=== PATIENT | female | born 1965 | race Two or more races ===

== ENCOUNTER 2017-08-17 11:41 | Inpatient (IN) | payer MEDICAID ==
--- NOTE | 2017-08-17 11:50 | ED Physician Chart ---
ED Chief Complaint/HPI - Patient Information Date Seen:: 08/17/17 Time Seen:: 11:40 Chief Complaint:: Weakness History of Present Illness:: onset x one day of weakness and gait changes; pt denies trauma, LOC, H/As, neck pain, C/P, cough, Abd. Pain, A/N/V/D/C, fever, chills, or urinary s/s Allergies:: Allergies Allergy/AdvReac Type Severity Reaction Status Date / Time No Known Allergies Allergy Verified 01/10/16 07:58 Historian:: Patient Review:: Nurse's Note Reviewed ED Review of Systems - Review of Systems General/Constitutional: No fever, No chills, No weight loss, No weakness, No diaphoresis, No edema, No loss of appetite Skin: No skin lesions, No rash, No bruising Head: No headache, No light-headedness Eyes: No loss of vision, No pain, No diplopia ENT: No earache, No nasal drainage, No sore throat, No tinnitus Neck: No neck pain, No swelling, No thyromegaly, No stiffness, No mass noted Cardio Vascular: No chest pain, No palpitations, No PND, No orthopnea, No edema Pulmonary: No SOB, No cough, No sputum, No wheezing GI: No nausea, No vomiting, No diarrhea, No pain, No melena, No hematochezia, No constipation, No hematemesis G/U: No dysuria, No frequency, No hematuria, No nacturia [employer]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, No abnormal vaginal bleed, No contraction Musculoskeletal: No bone or joint pain, No back pain, No muscle pain Endocrine: No polyuria, No polydipsia Psychiatric: No prior psych history, No depression, No anxiety, No suicidal ideation, No homicidal ideation, No auditory hallucination, No visual hallucination Hematopoietic: No bruising, No lymphadenopathy Allergic/Immuno: No urticaria, No angioedema Neurological: No syncope, No focal symptoms, Weakness, No paresthesia, No headache, No seizure, No dizziness, No confusion, No vertigo ED Past Medical History - Past Medical History Obtainable: Yes Past Medical History: Arthritis Family History: HTN Social History: Non Smoker, No Alcohol, No Drug Use, Single Surgical History: None Psychiatricy History: None Medication: Reviewed Family Medical History - Family Member Brother Ethnicity: Living Status: Hx Family Cancer: Yes ( from Stomach Cancer) Mother History Unknown: Yes Ethnicity: Living Status: Still Living Hx Family Diabetes: Yes ED Physical Exam - Physical Examination General/Constitutional: Awake, Well-developed, well-nourished, Alert, No distress, GCS 15, Non-toxic appearing, Ambulatory Head: Atraumatic Eyes: Lids, conjuctiva normal, PERRL, EOMI Skin: Nl inspection, No rash, No skin lesions, No ecchymosis, Well hydrated, No lymphadenopathy ENMT: External ears, nose nl, TM canals nl, Nasal exam nl, Lips, teeth, gums nl , Oropharynx nl, Tonsils nl Neck: Nontender, Full ROM w/o pain, No JVD, No nuchal rigidity, No bruit, No mass, No stridor Respiratory: Nl effort/Exclusion, Clear to Auscultation, No Wheeze/Rhonchi/Rales Cardio Vascular: RRR, No murmur, gallop, rubs, NL S1 S2, Carotid/Femoral/Distal pulses equal bilaterally GI: No tenderness/rebounding/guarding, No organomegaly, No hernia, Normal BS's, Nondistended, No mass/bruits, No McBurney tenderness : No CVA tenderness Extremities: No tenderness or effusion, Full ROM, normal strength in all extremities, No edema, Normal digits & nails Neuro/Psych: Alert/oriented, DTR's symmetric, Normal sensory exam, Normal motor strength, Judgement/insight normal, Mood normal, Normal gait, No focal deficits Misc: Normal back, No paraspinal tenderness ED Labs/Radiology/EKG Results - Lab Results Comments:: K+: 2.9; LA: 2.44; WBC:4.0 - Radiology Results Comments:: NAD - EKG Interpretations EKG Time:: 12:16 Rate & Rhythm: 101; [facility] [place]: LAD Comments:: non-specific st-t changes ED Septic Shock - . Is Septic Shock (SBP<90, OR Lactate>4 mmol\L) present?: No ED Reassessment (Disposition) - Reassessment Reassessment Condition:: Improved - Diagnosis Diagnosis:: TIA; Hypokalemia; Dehydration; Leukopenia; sepsis - Aftercare/Follow up Instructions Aftercare/Follow-Up Instructions:: Counseled pt regarding lab results/diagnosis & need follow up, Counseled pt & family regarding lab results/diagnosis & need follow up - Patient Disposition Discharge/Transfer:: Acute Care w/in this hosp Accepting Physician:: Dr. Young Time Called:: 1400 Time Responded:: 14:00 Admitted to:: Telemetry Spoke to:: Dr. Young Admitting Medical Physician:: Dr. Young Condition at Disposition:: Stable, Improved
[2017-08-17 12:14] LABS: EOSINOPHILE ABSOLUTE 0.3 Th/cmm (0.1-0.4); LYMPHOCYTE ABSOLUTE 1.7 Th/cmm (1.5-3.0); MONOCYTE ABSOLUTE 0.4 Th/cmm (0.3-1.0)
[2017-08-17 12:22] LABS: % BASOPHILS 0.1 % (0.0-2.0); % EOSINOPHILS 6.9 % (0.0-5.0); % LYMPHOCYTES 42.6 % (20.0-50.0); % MONOCYTES 10.8 % (2.0-10.0); % NEUTROPHILS 39.6 % (40.0-80.0); HEMATOCRIT 40.5 % (41.0-60); HEMOGLOBIN 14.1 gm/dL (12-16); MEAN CELL VOLUME 99.6 fl (81-100); MEAN CORPUSCULAR HEMOGLOBIN 34.8 pg (27.0-31.0); MEAN CORPUSCULAR HGB CONC 34.9 pg (28.0-36.0); MEAN PLATELET VOLUME 8.9 fl; NEUTROPHILE ABSOLUTE 1.6 Th/cmm (1.8-8.0); PLATELET COUNT 258 Th/cmm (150-400); RED BLOOD COUNT 4.07 Mil/cmm (3.80-5.10); RED CELL DISTRIBUTION WIDTH 13.2 % (11.5-20.0)
[2017-08-17 12:27] LABS: INR 1.08 (0.5-1.4); PROTHROMBIN TIME (TEST) 11.2 SECONDS (9.5-11.5)
[2017-08-17 12:39] LABS: ALBUMIN 3.5 gm/dL (3.7-5.3); ALKALINE PHOSPHATASE 78 U/L (34-104); BILIRUBIN,TOTAL 1.8 mg/dL (0.3-1.0); BUN - UREA NITROGEN 10 mg/dL (7-25); CALCIUM SERUM 9.1 mg/dL (8.6-10.3); CARBON DIOXIDE 24.9 mEq/L (21.0-31.0); CHLORIDE 99 mEq/L (98-107); CHOLESTEROL 175 mg/dL (<200); CREATININE - SERUM 0.7 mg/dL (0.6-1.2); CREATININE KINASE 30 U/L (30-223); GFR AFRICAN-AMERICAN > 60.0 ml/min (>90); GFR NON AFRICAN-AMERICAN > 60.0 ml/min; GLUCOSE 90 mg/dL (70-105); HDL -HIGH DENSITY LIPOPROTEIN 73 mg/dL (23-92); SGOT 328 U/L (13-39); SGPT/ALT 128 U/L (7-52); SODIUM SERUM 136 mEq/L (136-145); TRIGLYCERIDES 121 mg/dL (<150)
[2017-08-17 12:40] LABS: POTASSIUM SERUM 2.9 mEq/L (3.5-5.1)
[2017-08-17] MEDS ORDERED: Potassium Chloride 20 mEq ER Tab PO ONE ×2 (12:40→12:51)
--- NOTE | 2017-08-17 14:23 | Diagnostic Imaging Report ---
Head CT without intravenous contrast Indication: Weakness Comparison: Head CT on 02/24/2014 Technique: Axial images were obtained from the vertex to the skull base without IV contrast. Coronal reconstructions were made. Total DLP: 489, [id number] FINDINGS: Images of the brain obtained without contrast demonstrate no acute hemorrhage. No mass lesions identified. The ventricles and basal cisterns are patent. The russell-white matter differentiation is preserved. There is no mass effect or midline shift. No skull fractures identified. No soft tissue swelling. The paranasal sinuses are clear. IMPRESSION: No acute intracranial abnormality.
--- NOTE | 2017-08-17 14:29 | Diagnostic Imaging Report ---
Bilateral lower extremity Doppler venous ultrasound exam HISTORY: Pain/swelling Sonographic sector images were obtained through the deep venous systems of both legs. Associated Doppler data was obtained. The exam demonstrates patency of the common femoral, superficial femoral, popliteal, and posterior tibial veins bilaterally. Specifically, no thrombus is seen. There are normal compressibility and augmentation responses. IMPRESSION: Negative exam for deep vein thrombophlebitis.
[2017-08-17] MEDS ORDERED: cefTRIAXone 1 GM in Sodium Chloride 0.9% 50 ML IV ONE (15:52)
[2017-08-17 15:59] LABS: URINE MICROSCOPIC INDICATED? YES; URINE SOURCE MIDSTREAM
[2017-08-17 16:02] LABS: URINE BILIRUBIN MODERATE (NEGATIVE); URINE BLOOD MODERATE (NEGATIVE); URINE GLUCOSE (UA) NEGATIVE (NEGATIVE); URINE KETONE 15 mg/dL (NEGATIVE); URINE LEUKOCYTE ESTERASE TRACE (NEGATIVE); URINE NITRATE NEGATIVE (NEGATIVE); URINE PH 5.5 (4.6 - 8.0); URINE PROTEIN TRACE mg/dL (NEGATIVE)
[2017-08-17 16:09] LABS: URINE COLOR YELLOW
[2017-08-17 16:10] LABS: URINE CLARITY HAZY (CLEAR)
[2017-08-17 16:12] LABS: URINE EPITHELIAL CELLS MODERATE /lpf (FEW)
[2017-08-17 16:13] LABS: URINE BACTERIA FEW /hpf (NONE SEEN)
[2017-08-17] MEDS: D5-0.45NS w/20 mEq KCL 1,000 ML IV SCH (17:21)
--- NOTE | 2017-08-17 22:15 | History & Physical ---
ADMIT DATE: 08/17/2017 CHIEF COMPLAINT: Lower extremities pain. HISTORY OF PRESENT ILLNESS: The patient is a 51-year-old female with long history of polyarthritis, presented to the Emergency Room with pain of the lower extremities. Initial workup significant for urinary tract infection, hypokalemia. The patient received 40 mEq of KCl at the Emergency Room, IV antibiotic Rocephin 1 gram daily and admitted to the medical floor. The patient denies any chest pain, shortness of breath, nausea, vomiting, fever or chills. PAST MEDICAL HISTORY: Significant for arthritis. PAST SURGICAL HISTORY: Breast augmentation and tummy tuck. ALLERGIES: None. MEDICATIONS: Follow admission reconciliation. SOCIAL HISTORY: No smoking, no alcohol, no drugs. FAMILY HISTORY: Noncontributory. REVIEW OF SYSTEMS: RENAL SYSTEM: No history of chronic renal disorder. CARDIOVASCULAR SYSTEM: No coronary artery disease. ENDOCRINE SYSTEM: No diabetes or thyroid problem. GASTROINTESTINAL SYSTEM: No upper or lower GI bleed. NEUROLOGICAL SYSTEM: No seizure disorder. MUSCULOSKELETAL SYSTEM: She has history of polyarthritis. PHYSICAL EXAMINATION: GENERAL: She is awake, alert, oriented ____ distress. VITAL SIGNS: Temperature 98.6, heart rate 88, blood pressure 124/83. HEENT: Normocephalic. Pupils reacting to light and accommodation. Sclerae clear. NECK: Supple. Negative for lymphadenopathy, JVD or bruit. CHEST: Entry of air bilaterally normal. No rhonchi or wheezing. HEART: S1, S2 normal. No gallop rhythm. ABDOMEN: Soft, bowel sounds positive. EXTREMITIES: No edema. NEUROLOGICAL: She is awake, alert, oriented. No focal motor or sensory deficits. Cranial nerves 2-12 are intact. MUSCULOSKELETAL: Examination of the joints within normal limit. LABORATORY DATA: White blood cell 4, hemoglobin 14.1, hematocrit is 40.5, platelet is 258. Sodium 138, potassium 2.9, BUN 10, creatinine 2.7. Lactic acid 1.52. ASSESSMENT: 1. Urinary tract infection. 2. Polyarthritis. 3. Hypokalemia. PLAN: The patient admitted to the hospital under Dr. Young's service, started on IV fluid, antibiotic, regular diet. CBC, CMP for tomorrow. Hepatitis panel ordered. Abdominal ultrasound ordered. The patient is a full code. [facility]# [id number]
[2017-08-18 06:00] LABS: % BASOPHILS 0.6 % (0.0-2.0); % EOSINOPHILS 4.8 % (0.0-5.0); % LYMPHOCYTES 36.7 % (20.0-50.0); % MONOCYTES 12.3 % (2.0-10.0); % NEUTROPHILS 45.6 % (40.0-80.0); EOSINOPHILE ABSOLUTE 0.2 Th/cmm (0.1-0.4); HEMATOCRIT 39.8 % (41.0-60); HEMOGLOBIN 13.3 gm/dL (12-16); LYMPHOCYTE ABSOLUTE 1.9 Th/cmm (1.5-3.0); MEAN CELL VOLUME 100.1 fl (81-100); MEAN CORPUSCULAR HEMOGLOBIN 33.5 pg (27.0-31.0); MEAN CORPUSCULAR HGB CONC 33.4 pg (28.0-36.0); MEAN PLATELET VOLUME 9.2 fl; MONOCYTE ABSOLUTE 0.6 Th/cmm (0.3-1.0); NEUTROPHILE ABSOLUTE 2.4 Th/cmm (1.8-8.0); PLATELET COUNT 261 Th/cmm (150-400); RED BLOOD COUNT 3.98 Mil/cmm (3.80-5.10); RED CELL DISTRIBUTION WIDTH 13.1 % (11.5-20.0)
[2017-08-18 06:05] LABS: WHITE BLOOD COUNT 5.1 Th/cmm (4.8-10.8)
[2017-08-18 06:13] LABS: ALB/GLOB RATIO 0.9 (1.0-1.8); ALKALINE PHOSPHATASE 65 U/L (34-104); ANION GAP 8.2 (7.0-16.0); BILIRUBIN,TOTAL 1.3 mg/dL (0.3-1.0); BUN - UREA NITROGEN 13 mg/dL (7-25); CALCIUM SERUM 8.5 mg/dL (8.6-10.3); CARBON DIOXIDE 27.3 mEq/L (21.0-31.0); CHLORIDE 106 mEq/L (98-107); CREATININE - SERUM 0.7 mg/dL (0.6-1.2); GFR AFRICAN-AMERICAN > 60.0 ml/min (>90); GFR NON AFRICAN-AMERICAN > 60.0 ml/min; GLUCOSE 95 mg/dL (70-105); POTASSIUM SERUM 3.5 mEq/L (3.5-5.1); SGOT 158 U/L (13-39); SGPT/ALT 85 U/L (7-52); SODIUM SERUM 138 mEq/L (136-145); TOTAL PROTEIN,SERUM 6.2 gm/dL (6.0-8.3)
[2017-08-18 08:31] LABS: AMPHETAMINE URINE NEGATIVE (NEGATIVE); BARBITURATES URINE NEGATIVE (NEGATIVE); BENZODIAZEPINES QUAL URINE POSITIVE (NEGATIVE); CANNABINOID THC NEGATIVE (NEGATIVE); COCAINE METABOLITE QUAL URINE NEGATIVE (NEGATIVE); METHADONE URINE NEGATIVE (NEGATIVE); METHAMPHETAMINES QUAL URINE NEGATIVE (NEGATIVE); OPIATES (MORPHINE) QUAL. URINE NEGATIVE (NEGATIVE); PHENCYCLIDINE (PCP) URINE NEGATIVE (NEGATIVE); TRICYCLICS (TCA) QUAL. URINE NEGATIVE (NEGATIVE)
[2017-08-18 10:17] LABS: HEP B CORE IGM Negative (Negative); HEP B SURFACE AG QL Negative (Negative); HEP C ANTIBODY 0.1 s/co ratio (0.0-0.9)
--- NOTE | 2017-08-18 10:56 | Diagnostic Imaging Report ---
Ultrasound abdomen HISTORY: Abnormal liver function tests COMPARISON: CT abdomen and pelvis on 01/10/2016 Technique: Sonography of the abdomen was performed in multiple planes. FINDINGS: Exam is limited due to bowel gas. The liver demonstrates increased echogenicity with no evidence of focal lesions. The liver measures 15.2 cm. Low level echoes are seen along the gallbladder neck. No discrete gallstones identified. No evidence of gallbladder wall thickening. The common bile was not visualized. Evaluation of the pancreas is limited due to bowel gas. The right kidney measures 8.8 x 5.2 cm. No evidence of focal lesions or hydronephrosis. The left kidney measures 9.0 x 4.8 cm. No evidence of focal lesions or hydronephrosis. The spleen measures 9.9 cm. The visualized portions of the abdominal aorta within normal limits in size.. IMPRESSION: Limited exam due to bowel gas. Low level echoes seen along the neck of the gallbladder possibly representing a small amount of gallbladder sludge. No discrete gallstones or evidence of gallbladder wall thickening The common bile duct was not visualized. Increased echogenicity of the liver which may be due to underlying fatty infiltration.
[2017-08-18] MEDS: D5-0.45NS w/20 mEq KCL 1,000 ML IV SCH (15:52)
--- NOTE | 2017-08-18 21:09 | Internal Medicine Prog Note ---
Internal Medicine Subjective - Subjective Service Date: 08/18/17 Patient seen and examined:: without staff Patient is:: awake, verbal, in bed, talking Per staff patient has:: no adverse event (SHE FEELS BETTER .LESS LEGS PAIN.) Internal Medicine Objective - Results Result Diagrams: 08/18/17 05:13 08/18/17 05:13 Recent Labs: Laboratory Last Values WBC 5.1 Th/cmm (4.8-10.8) D 08/18/17 05:13 RBC 3.98 Mil/cmm (3.80-5.10) 08/18/17 05:13 Hgb 13.3 gm/dL (12-16) 08/18/17 05:13 Hct 39.8 % (41.0-60) L 08/18/17 05:13 MCV 100.1 fl (81-100) H 08/18/17 05:13 MCH 33.5 pg (27.0-31.0) H 08/18/17 05:13 MCHC Differential 33.4 pg (28.0-36.0) 08/18/17 05:13 RDW 13.1 % (11.5-20.0) 08/18/17 05:13 Plt Count 261 Th/cmm (150-400) 08/18/17 05:13 MPV 9.2 fl 08/18/17 05:13 Neutrophils % 45.6 % (40.0-80.0) 08/18/17 05:13 Lymphocytes % 36.7 % (20.0-50.0) 08/18/17 05:13 Monocytes % 12.3 % (2.0-10.0) H 08/18/17 05:13 Eosinophils % 4.8 % (0.0-5.0) 08/18/17 05:13 Basophils % 0.6 % (0.0-2.0) 08/18/17 05:13 PT 11.2 SECONDS (9.5-11.5) 08/17/17 12:00 INR 1.08 (0.5-1.4) 08/17/17 12:00 Sodium 138 mEq/L (136-145) 08/18/17 05:13 Potassium 3.5 mEq/L (3.5-5.1) 08/18/17 05:13 Chloride 106 mEq/L (98-107) 08/18/17 05:13 Carbon Dioxide 27.3 mEq/L (21.0-31.0) 08/18/17 05:13 Anion Gap 8.2 (7.0-16.0) 08/18/17 05:13 BUN 13 mg/dL (7-25) 08/18/17 05:13 Creatinine 0.7 mg/dL (0.6-1.2) 08/18/17 05:13 Est GFR ( Amer) > 60.0 ml/min (>90) 08/18/17 05:13 Est GFR (Non-Af Amer) > 60.0 ml/min 08/18/17 05:13 BUN/Creatinine Ratio 18.6 08/18/17 05:13 Glucose 95 mg/dL (70-105) 08/18/17 05:13 Whole Bld Lactic Acid 1.52 mmol/L (0.60-1.99) 08/17/17 13:45 Calcium 8.5 mg/dL (8.6-10.3) L 08/18/17 05:13 Total Bilirubin 1.3 mg/dL (0.3-1.0) H 08/18/17 05:13 AST 158 U/L (13-39) H 08/18/17 05:13 ALT 85 U/L (7-52) H 08/18/17 05:13 Alkaline Phosphatase 65 U/L (34-104) 08/18/17 05:13 Creatine Kinase 30 U/L (30-223) 08/17/17 12:00 Troponin I 0.01 ng/mL (0.01-0.05) 08/17/17 12:00 B-Natriuretic Peptide 38.6 pg/mL (5.0-100.0) 08/17/17 12:00 Total Protein 6.2 gm/dL (6.0-8.3) 08/18/17 05:13 Albumin 3.0 gm/dL (3.7-5.3) L 08/18/17 05:13 Globulin 3.2 gm/dL 08/18/17 05:13 Albumin/Globulin Ratio 0.9 (1.0-1.8) L 08/18/17 05:13 Triglycerides 121 mg/dL (<150) 08/17/17 12:00 Cholesterol 175 mg/dL (<200) 08/17/17 12:00 LDL Cholesterol Direct 79 mg/dL (75-193) 08/17/17 12:00 HDL Cholesterol 73 mg/dL (23-92) 08/17/17 12:00 Serum , Qual NEGATIVE (NEGATIVE) 08/17/17 12:00 Urine Source MIDSTREAM 08/17/17 14:50 Urine Color YELLOW 08/17/17 14:50 Urine Clarity HAZY (CLEAR) 08/17/17 14:50 Urine pH 5.5 (4.6 - 8.0) 08/17/17 14:50 Ur Specific [place] 1.025 (1.005-1.030) 08/17/17 14:50 Urine Protein TRACE mg/dL (NEGATIVE) 08/17/17 14:50 Urine Glucose (UA) NEGATIVE mg/dL (NEGATIVE) 08/17/17 14:50 Urine Ketones 15 mg/dL (NEGATIVE) H 08/17/17 14:50 Urine Blood MODERATE (NEGATIVE) H 08/17/17 14:50 Urine Nitrate NEGATIVE (NEGATIVE) 08/17/17 14:50 Urine Bilirubin MODERATE (NEGATIVE) H 08/17/17 14:50 Urine Urobilinogen 4.0 E.U./dL (0.2 - 1.0) H 08/17/17 14:50 Ur Leukocyte Esterase TRACE (NEGATIVE) H 08/17/17 14:50 Urine RBC 10-25 /hpf (0-5) H 08/17/17 14:50 Urine WBC 2-5 /hpf (0-5) 08/17/17 14:50 Ur Epithelial Cells MODERATE /lpf (FEW) 08/17/17 14:50 Urine Bacteria FEW /hpf (NONE SEEN) 08/17/17 14:50 Urine Opiates Screen NEGATIVE (NEGATIVE) 08/18/17 06:45 Urine Methadone Screen NEGATIVE (NEGATIVE) 08/18/17 06:45 Ur Barbiturates Screen NEGATIVE (NEGATIVE) 08/18/17 06:45 Ur Tricyclics Screen NEGATIVE (NEGATIVE) 08/18/17 06:45 Ur Phencyclidine Scrn NEGATIVE (NEGATIVE) 08/18/17 06:45 Amphetamines Screen NEGATIVE (NEGATIVE) 08/18/17 06:45 U Methamphetamines Scrn NEGATIVE (NEGATIVE) 08/18/17 06:45 U Benzodiazepines Scrn POSITIVE (NEGATIVE) H 08/18/17 06:45 U Cocaine Metab Screen NEGATIVE (NEGATIVE) 08/18/17 06:45 U Cannabinoids Screen NEGATIVE (NEGATIVE) 08/18/17 06:45 Hep Bs Antigen Negative (Negative) 08/17/17 21:28 Hep B Core IgM Ab Negative (Negative) 08/17/17 21:28 Hepatitis C Antibody 0.1 s/co ratio (0.0-0.9) 08/17/17 21:28 - Physical Exam Vitals and I&O: Vital Signs Temp 97.4 F 08/18/17 20:00 Pulse 77 08/18/17 20:00 Resp 20 08/18/17 20:00 BP 115/79 08/18/17 20:00 Pulse Ox 97 08/18/17 20:00 Intake & Output 08/18/17 08/18/17 08/19/17 06:59 18:59 06:59 Intake Total 1000 50 Balance 1000 50 Intake: Intake, IV Amount 1000 50 D5-0.45NS w/20 mEq KCL 1, 1000 000 ml @ 75 mls/hr IV . [id number] [facility] Rx#:[id number] cefTRIAXone 1 gm In 50 Dextrose 5% 50 ml @ 100 mls/hr IV Q24H [facility] Rx#: [id number] Active Medications: Current Medications Alprazolam (Xanax) 0.25 mg PO Q8HR PRN; Protocol PRN Reason: Anxiety Stop: 10/16/17 21:23 Last Admin: 08/17/17 21:41 Dose: 0.25 mg Potassium Chloride/Dextrose/Sod Cl (D5-0.45ns W/20 Meq Kcl) 1,000 mls @ 75 mls/ hr IV .[id number] [facility] Stop: 10/16/17 16:29 Last Admin: 08/18/17 15:52 Dose: 75 mls/hr Ceftriaxone Sodium 1 gm/ (Dextrose) 50 mls @ 100 mls/hr IV Q24H [facility] Stop: 10/17/17 15:59 Last Infusion: 08/18/17 16:22 Dose: Infused Ketorolac Tromethamine (Toradol) 30 mg IVP Q6HR PRN PRN Reason: Pain (Severe) Stop: 10/16/17 19:46 Last Admin: 08/18/17 15:46 Dose: 30 mg Tramadol HCl (Ultram) 50 mg PO Q6HR PRN PRN Reason: Pain (Moderate) Stop: 10/16/17 19:46 Last Admin: 08/18/17 20:26 Dose: 50 mg General: alert HEENT: NC/AT, PERRLA, EOMI, anicteric sclerae, throat clear Neck: Supple, No JVD, No thyromegaly Cardiovascular: Normal S1, Normal S2, without murmur Abdomen: soft, non-tender, non-distended Extremities: clear Neurological: no change - Procedures Procedures: Procedures Procedure Code Date APPLICATION OF SPLINT 93.54 10/29/09 APPLY FOREARM SPLINT 45612 10/29/09 INJECT/INFUSE NEC 99.29 02/24/14 THER/PROPH/DIAG INJ SC/IM 73729 10/29/09 Internal Medicine Assmt/Plan - Assessment Assessment: 1.UTI. 2.ABNORMAL LFT. 3.POLYARTHRITIS. - Plan Plan: CONTINUE ON CURRENT MEDICATION AND DIET
[2017-08-19] MEDS: D5-0.45NS w/20 mEq KCL 1,000 ML IV SCH ×2 (05:54→20:57)
[2017-08-19] MEDS ORDERED: Probiotic Screen MC PRN (10:00)
--- NOTE | 2017-08-19 19:50 | Internal Medicine Prog Note ---
Internal Medicine Subjective - Subjective Service Date: 08/19/17 Patient seen and examined:: without staff (SHE FEELS BETTER,LESS PAIN.NO FEVER.) Patient is:: awake, verbal, in bed, talking Per staff patient has:: no adverse event (SHE FEELS BETTER .LESS LEGS PAIN.) Internal Medicine Objective - Results Result Diagrams: 08/18/17 05:13 08/18/17 05:13 Recent Labs: Laboratory Last Values WBC 5.1 Th/cmm (4.8-10.8) D 08/18/17 05:13 RBC 3.98 Mil/cmm (3.80-5.10) 08/18/17 05:13 Hgb 13.3 gm/dL (12-16) 08/18/17 05:13 Hct 39.8 % (41.0-60) L 08/18/17 05:13 MCV 100.1 fl (81-100) H 08/18/17 05:13 MCH 33.5 pg (27.0-31.0) H 08/18/17 05:13 MCHC Differential 33.4 pg (28.0-36.0) 08/18/17 05:13 RDW 13.1 % (11.5-20.0) 08/18/17 05:13 Plt Count 261 Th/cmm (150-400) 08/18/17 05:13 MPV 9.2 fl 08/18/17 05:13 Neutrophils % 45.6 % (40.0-80.0) 08/18/17 05:13 Lymphocytes % 36.7 % (20.0-50.0) 08/18/17 05:13 Monocytes % 12.3 % (2.0-10.0) H 08/18/17 05:13 Eosinophils % 4.8 % (0.0-5.0) 08/18/17 05:13 Basophils % 0.6 % (0.0-2.0) 08/18/17 05:13 PT 11.2 SECONDS (9.5-11.5) 08/17/17 12:00 INR 1.08 (0.5-1.4) 08/17/17 12:00 Sodium 138 mEq/L (136-145) 08/18/17 05:13 Potassium 3.5 mEq/L (3.5-5.1) 08/18/17 05:13 Chloride 106 mEq/L (98-107) 08/18/17 05:13 Carbon Dioxide 27.3 mEq/L (21.0-31.0) 08/18/17 05:13 Anion Gap 8.2 (7.0-16.0) 08/18/17 05:13 BUN 13 mg/dL (7-25) 08/18/17 05:13 Creatinine 0.7 mg/dL (0.6-1.2) 08/18/17 05:13 Est GFR ( Amer) > 60.0 ml/min (>90) 08/18/17 05:13 Est GFR (Non-Af Amer) > 60.0 ml/min 08/18/17 05:13 BUN/Creatinine Ratio 18.6 08/18/17 05:13 Glucose 95 mg/dL (70-105) 08/18/17 05:13 Whole Bld Lactic Acid 1.52 mmol/L (0.60-1.99) 08/17/17 13:45 Calcium 8.5 mg/dL (8.6-10.3) L 08/18/17 05:13 Total Bilirubin 1.3 mg/dL (0.3-1.0) H 08/18/17 05:13 AST 158 U/L (13-39) H 08/18/17 05:13 ALT 85 U/L (7-52) H 08/18/17 05:13 Alkaline Phosphatase 65 U/L (34-104) 08/18/17 05:13 Creatine Kinase 30 U/L (30-223) 08/17/17 12:00 Troponin I 0.01 ng/mL (0.01-0.05) 08/17/17 12:00 B-Natriuretic Peptide 38.6 pg/mL (5.0-100.0) 08/17/17 12:00 Total Protein 6.2 gm/dL (6.0-8.3) 08/18/17 05:13 Albumin 3.0 gm/dL (3.7-5.3) L 08/18/17 05:13 Globulin 3.2 gm/dL 08/18/17 05:13 Albumin/Globulin Ratio 0.9 (1.0-1.8) L 08/18/17 05:13 Triglycerides 121 mg/dL (<150) 08/17/17 12:00 Cholesterol 175 mg/dL (<200) 08/17/17 12:00 LDL Cholesterol Direct 79 mg/dL (75-193) 08/17/17 12:00 HDL Cholesterol 73 mg/dL (23-92) 08/17/17 12:00 Serum , Qual NEGATIVE (NEGATIVE) 08/17/17 12:00 Urine Source MIDSTREAM 08/17/17 14:50 Urine Color YELLOW 08/17/17 14:50 Urine Clarity HAZY (CLEAR) 08/17/17 14:50 Urine pH 5.5 (4.6 - 8.0) 08/17/17 14:50 Ur Specific [place] 1.025 (1.005-1.030) 08/17/17 14:50 Urine Protein TRACE mg/dL (NEGATIVE) 08/17/17 14:50 Urine Glucose (UA) NEGATIVE mg/dL (NEGATIVE) 08/17/17 14:50 Urine Ketones 15 mg/dL (NEGATIVE) H 08/17/17 14:50 Urine Blood MODERATE (NEGATIVE) H 08/17/17 14:50 Urine Nitrate NEGATIVE (NEGATIVE) 08/17/17 14:50 Urine Bilirubin MODERATE (NEGATIVE) H 08/17/17 14:50 Urine Urobilinogen 4.0 E.U./dL (0.2 - 1.0) H 08/17/17 14:50 Ur Leukocyte Esterase TRACE (NEGATIVE) H 08/17/17 14:50 Urine RBC 10-25 /hpf (0-5) H 08/17/17 14:50 Urine WBC 2-5 /hpf (0-5) 08/17/17 14:50 Ur Epithelial Cells MODERATE /lpf (FEW) 08/17/17 14:50 Urine Bacteria FEW /hpf (NONE SEEN) 08/17/17 14:50 Urine Opiates Screen NEGATIVE (NEGATIVE) 08/18/17 06:45 Urine Methadone Screen NEGATIVE (NEGATIVE) 08/18/17 06:45 Ur Barbiturates Screen NEGATIVE (NEGATIVE) 08/18/17 06:45 Ur Tricyclics Screen NEGATIVE (NEGATIVE) 08/18/17 06:45 Ur Phencyclidine Scrn NEGATIVE (NEGATIVE) 08/18/17 06:45 Amphetamines Screen NEGATIVE (NEGATIVE) 08/18/17 06:45 U Methamphetamines Scrn NEGATIVE (NEGATIVE) 08/18/17 06:45 U Benzodiazepines Scrn POSITIVE (NEGATIVE) H 08/18/17 06:45 U Cocaine Metab Screen NEGATIVE (NEGATIVE) 08/18/17 06:45 U Cannabinoids Screen NEGATIVE (NEGATIVE) 08/18/17 06:45 Hep Bs Antigen Negative (Negative) 08/17/17 21:28 Hep B Core IgM Ab Negative (Negative) 08/17/17 21:28 Hepatitis C Antibody 0.1 s/co ratio (0.0-0.9) 08/17/17 21:28 - Physical Exam Vitals and I&O: Vital Signs Temp 96.8 F 08/19/17 16:23 Pulse 81 08/19/17 16:23 Resp 17 08/19/17 16:23 BP 114/81 08/19/17 16:23 Pulse Ox 98 08/19/17 16:23 Intake & Output 08/19/17 08/19/17 08/20/17 06:59 18:59 06:59 Intake Total 1360 600 Balance 1360 600 Weight (lbs) 66.587 kg 66.587 kg Intake: Intake, IV Amount 1000 D5-0.45NS w/20 mEq KCL 1, 1000 000 ml @ 75 mls/hr IV . [id number] [facility] Rx#:[id number] Oral 360 600 Other: # Voids 3 5 # Bowel Movements 1 Active Medications: Current Medications Alprazolam (Xanax) 0.25 mg PO Q8HR PRN; Protocol PRN Reason: Anxiety Stop: 10/16/17 21:23 Last Admin: 08/19/17 02:15 Dose: 0.25 mg Potassium Chloride/Dextrose/Sod Cl (D5-0.45ns W/20 Meq Kcl) 1,000 mls @ 75 mls/ hr IV .[id number] [facility] Stop: 10/16/17 16:29 Last Admin: 08/19/17 05:54 Dose: 75 mls/hr Ceftriaxone Sodium 1 gm/ (Dextrose) 50 mls @ 100 mls/hr IV Q24H [facility] Stop: 10/17/17 15:59 Last Infusion: 08/18/17 16:22 Dose: Infused Ketorolac Tromethamine (Toradol) 30 mg IVP Q6HR PRN PRN Reason: Pain (Severe) Stop: 10/16/17 19:46 Last Admin: 08/19/17 07:46 Dose: 30 mg Lactobacillus Rhamnosus (Culturelle 15b) 1 each PO DAILY [place] Stop: 10/19/17 08:59 Miscellaneous (Probiotic Screen) 1 ea [facility] PRN PRN PRN Reason: PROTOCOL Stop: 10/18/17 09:59 Temazepam (Restoril) 15 mg PO X1 ONE PRN Reason: Protocol Stop: 08/19/17 19:48 Tramadol HCl (Ultram) 50 mg PO Q6HR PRN PRN Reason: Pain (Moderate) Stop: 10/16/17 19:46 Last Admin: 08/19/17 10:57 Dose: 50 mg General: alert HEENT: NC/AT, PERRLA, EOMI, anicteric sclerae, throat clear Neck: Supple, No JVD, No thyromegaly Cardiovascular: Normal S1, Normal S2, without murmur Abdomen: soft, non-tender, non-distended Extremities: clear Neurological: no change - Procedures Procedures: Procedures Procedure Code Date APPLICATION OF SPLINT 93.54 10/29/09 APPLY FOREARM SPLINT 77378 10/29/09 INJECT/INFUSE NEC 99.29 02/24/14 THER/PROPH/DIAG INJ SC/IM 96651 10/29/09 Internal Medicine Assmt/Plan - Assessment Assessment: 1.UTI. 2.ABNORMAL LFT. 3.POLYARTHRITIS. 4.INSOMNIA. - Plan Plan: CONTINUE ON CURRENT MEDICATION AND DIETRESTORIL 15 MG PO Q HS.
[2017-08-20] MEDS ORDERED: Lactobacillus Rhamnosus GG 15 Billion CFU CAP.SPRINK PO SCH (09:00)
[2017-08-20 19:59] LABS: HEP B CORE AB TOTAL NEGATIVE; HEP B SURFACE AG QL NEGATIVE
[2017-08-20 20:00] LABS: HEP B SURFACE AB QUANT NEGATIVE
--- NOTE | 2017-08-20 20:01 | Discharge Summary ---
DATE OF DISCHARGE: 08/20/2017 FINAL DIAGNOSES: 1. Urinary tract infection. 2. Dehydration. 3. Polyarthritis. 4. Abnormal liver function test. REVIEW OF HISTORY: The patient is a 51-year-old female with long history of polyarthritis, presented to the Emergency Room with pain and generalized weakness. Initial workup significant for urinary tract infection, dehydration, abnormal liver function tests admitted to hospital. PHYSICAL EXAMINATION: VITAL SIGNS: Temperature 98.6, heart rate 88, and blood pressure 124/83. CHEST: Clear to auscultation. ABDOMEN: Soft. Bowel sounds positive. EXTREMITIES: No edema. LABORATORY DATA: White blood cell 4, hemoglobin 14.1, hematocrit 40.5, and platelets 257. Sodium 138, potassium 2.9, BUN 10, and creatinine 2.7. Lactic acid 1.52. COURSE OF HOSPITALIZATION: During hospitalization, the patient started on IV fluid, antibiotic. On 08/18/2017, the patient had ultrasound of the abdomen, which was negative for any cholecystitis or any mass. On 08/19/2017, the patient was feeling better, no chest pain, no nausea, no vomiting. The patient started on Mobic 15 mg a day. DISPOSITION: On the 08/20/2017, the patient feels well, very minimum pain. No nausea, no vomiting. Eating well. The patient discharged home. Follow up with primary physician next week. CONDITION ON DISCHARGE: Stable. MEDICATIONS: Follow discharge reconciliation. [facility]# [id number]
== END 2017-08-20 12:50 | disposition home or self-care (01) | DRG 720 ==
LOC: ER 11:41 → UNDOADMIN 15:50 → TELE 15:50 → MSI 15:50 → TELE 16:26 → MSI 08-19 20:15
PROVIDERS: ADMIT Family Medicine; ATTEND Family Medicine
DX: A41.9 Sepsis, unspecified organism (principal); G45.9 Transient cerebral ischemic attack, unspecified; N39.0 Urinary tract infection, site not specified; E86.0 Dehydration; E87.6 Hypokalemia; M13.0 Polyarthritis, unspecified; I10 Essential (primary) hypertension; G47.00 Insomnia, unspecified
CPT/HCPCS: 36415-UA; 70450-TC; 76700-TC; 80053-TC; 80061-TC; 80307; 81001-TC; 82550-TC; 83605; 83880-TC; 84484-TC; 84703-TC; 85025-TC; 85610-TC; 86704-90; 86705-90; 86706-90; 86707-90; 86803-90; 87086-90; 87340-90; 87341-90; 87350-90; 87522-90; 90784; 93005; 93970-TC-50; J0696; J1885; Z7610

== ENCOUNTER 2018-01-20 06:28 | Emergency (ER) | payer MEDICAID ==
--- NOTE | 2018-01-20 07:35 | ED Physician Chart ---
ED Chief Complaint/HPI - Patient Information Date Seen:: 01/20/18 Time Seen:: 20:00 Chief Complaint:: cough History of Present Illness:: Patient's had a cough productive of white sputum and burning sensation of the forehead and cheeks and myalgia for last 4-5 days. Her temperature was 101 at 0400 this morning. No vomiting or diarrhea. Patient received influenza vaccination this season. Patient's had red urine for the last 2 months. No chronic medical problems. Surgeries: Breast implants and tummy tuck. Family history negative. Physical examination patient's well-developed well-nourished no acute distress. Eyes pupils equal round react to light. Ears both tympanic membranes clear. Healed perforation of left tympanic membrane noted. Throat clear. Neck supple. Chest clear symmetrical breath sounds. Heart regular rhythm no murmur or extra sound. Abdomen bowel sounds present abdomen is soft nontender no organomegaly. Allergies:: Allergies Allergy/AdvReac Type Severity Reaction Status Date / Time No Known Allergies Allergy Verified 01/10/16 07:58 Vitals:: Vital Signs - 8 hr 01/20/18 06:30 Temp 98.4 F HR 89 RR 18 BP 100/73 O2 Sat % 97 ED Review of Systems - Review of Systems General/Constitutional: Fever Skin: No skin lesions Head: Light headed Eyes: No loss of vision ENT: No earache Neck: No neck pain, No swelling Cardio Vascular: No chest pain, No palpitations Pulmonary: Cough GI: No nausea, No vomiting, No diarrhea G/U: No dysuria Application Consultant: No vaginal discharge, No abnormal vaginal bleed Musculoskeletal: Muscle pain Endocrine: No polyuria Psychiatric: No prior psych history Hematopoietic: No bruising Allergic/Immuno: No urticaria Neurological: No syncope, No focal symptoms Family Medical History - Family Member Brother Ethnicity: Living Status: Hx Family Cancer: Yes Mother History Unknown: Yes Ethnicity: Living Status: Still Living Hx Family Diabetes: Yes ED Assessment - Assessment General Assessment: Patient does not have a urinary tract infection; chest x-ray is clear. She was encouraged to continue to get influenza vaccination every year preferably in May. ED Septic Shock - . Is Septic Shock (SBP<90, OR Lactate>4 mmol\L) present?: No - <6hrs of presentation: Vital Signs: Vital Signs - 8 hr 01/20/18 06:30 Temp 98.4 F HR 89 RR 18 BP 100/73 O2 Sat % 97 ED Reassessment (Disposition) - Reassessment Reassessment Condition:: Unchanged - Diagnosis Diagnosis:: Acute viral syndrome - Aftercare/Follow up Instructions Aftercare/Follow-Up Instructions:: Refer to Discharge Instructions - Patient Disposition Discharge/Transfer:: Home Condition at Disposition:: Stable, Unchanged
[2018-01-20 08:38] LABS: URINE MICROSCOPIC INDICATED? YES; URINE SOURCE CLEAN C
[2018-01-20 08:41] LABS: URINE BILIRUBIN MODERATE (NEGATIVE); URINE BLOOD NEGATIVE (NEGATIVE); URINE GLUCOSE (UA) NEGATIVE (NEGATIVE); URINE KETONE 15 mg/dL (NEGATIVE); URINE LEUKOCYTE ESTERASE TRACE (NEGATIVE); URINE PH >=9.0 (4.6 - 8.0); URINE PROTEIN 30 mg/dL (NEGATIVE); URINE UROBILINOGEN >=8.0 E.U./dL (0.2 - 1.0)
[2018-01-20 08:48] LABS: URINE NITRATE COLOR INTERFERENCE (NEGATIVE)
[2018-01-20 08:49] LABS: URINE CLARITY CLEAR (CLEAR); URINE COLOR DARK ORANGE
[2018-01-20 08:53] LABS: URINE BACTERIA FEW /hpf (NONE SEEN); URINE EPITHELIAL CELLS FEW /lpf (FEW); URINE RBC 0-2 /hpf (0-5)
[2018-01-20 08:54] LABS: URINE ICTOTEST POSITIVE (NEGATIVE)
--- NOTE | 2018-01-20 09:13 | Diagnostic Imaging Report ---
Portable chest x-ray History: Cough Allowing for portable technique the heart size is normal. No focal pulmonary parenchymal processes. No hilar or mediastinal abnormalities. Impression: No acute abnormalities.
== END 2018-01-20 09:30 | disposition home or self-care (01) ==
LOC: ER 06:28
DX: B34.9 Viral infection, unspecified (principal); R42 Dizziness and giddiness
CPT/HCPCS: 71045-TC; 81001-TC; Z7502

== ENCOUNTER 2018-04-02 15:45 | Emergency (ER) | payer MEDICAID ==
[2018-04-02] MEDS ORDERED: Acetaminophen 500 MG TAB ONE (16:01)
[2018-04-02] MEDS: Acetaminophen 500 MG TAB PO ONE ×2 (16:05→16:12)
--- NOTE | 2018-04-02 16:27 | ED Physician Chart ---
ED Chief Complaint/HPI - Patient Information Date Seen:: 04/02/18 Time Seen:: 16:11 Chief Complaint:: SORE THROAT History of Present Illness:: THIS IS A 52 YR OLD FEMALE BIB A FRIEND WITH A SORE THROAT AND WEAKNESS. SHE DENIES SOB, COUGH AND RUNNY NOSE. SHE DENIES HAVING ANY MEDICAL PROBLEMS, HOWEVER SHE HAS HAD 19 VISITS TO THIS ER SINCE 2010. SHE HAS HAD DIFFICULTY WITH DRINKING ALCOHOL IN THE PAST. SHE STATES THAT SHE IS DISABLE AND NOT ABLE WORK FROM INJURY ON THE JOB. Allergies:: Allergies Allergy/AdvReac Type Severity Reaction Status Date / Time No Known Allergies Allergy Verified 01/10/16 07:58 Vitals:: Vital Signs - 8 hr 04/02/18 16:08 Temp 100.5 F HR 100 RR 25 BP 103/74 O2 Sat % 96 Historian:: Patient, Medical Records Review:: Nurse's Note Reviewed, Old Chart Reviewed ED Review of Systems - Review of Systems General/Constitutional: No fever, No chills, No weight loss, No weakness, No diaphoresis, No edema, No loss of appetite Skin: No skin lesions, No rash, No bruising Head: No headache, No light-headedness Eyes: No loss of vision, No pain, No diplopia ENT: No earache, No nasal drainage, Sore throat, No tinnitus Neck: No neck pain, No swelling, No thyromegaly, No stiffness, No mass noted Cardio Vascular: No chest pain, No palpitations, No PND, No orthopnea, No edema Pulmonary: No SOB, No cough, No sputum, No wheezing GI: No nausea, No vomiting, No diarrhea, No pain, No melena, No hematochezia, No constipation, No hematemesis G/U: No dysuria, No frequency, No hematuria Musculoskeletal: No bone or joint pain, No back pain, No muscle pain Endocrine: No polyuria, No polydipsia Psychiatric: No prior psych history, No depression, No anxiety, No suicidal ideation Hematopoietic: No bruising, No lymphadenopathy Allergic/Immuno: No urticaria, No angioedema Neurological: No syncope, No focal symptoms, No weakness, No paresthesia, No headache, No seizure, No dizziness, No confusion, No vertigo ED Past Medical History - Past Medical History Obtainable: Yes Past Medical History: Arthritis, Other (DRUG ABUSE ALCOHOL) Family History: None Social History: Non Smoker, Alcohol, No Drug Use, Single Surgical History: other (TUMMY TUCK AND BREAST AUGMENTATION) Psychiatricy History: None Medication: Reviewed Family Medical History - Family Member Brother History Unknown: Yes Ethnicity: Living Status: Hx Family Cancer: Yes Mother History Unknown: Yes Ethnicity: Living Status: Still Living Hx Family Diabetes: Yes ED Physical Exam - Physical Examination General/Constitutional: Awake, Well-developed, well-nourished, Alert, No distress, GCS 15, Non-toxic appearing, Ambulatory Other Gen/Cons comments:: GENERALIZE WEAKNESS Head: Atraumatic Eyes: Lids, conjuctiva normal, PERRL, EOMI Skin: Nl inspection, No rash, No skin lesions, No ecchymosis, Well hydrated, No lymphadenopathy ENMT: External ears, nose nl, Nasal exam nl, Lips, teeth, gums nl Neck: Nontender, Full ROM w/o pain, No JVD, No nuchal rigidity, No bruit, No mass, No stridor Respiratory: Nl effort/Exclusion, Clear to Auscultation, No Wheeze/Rhonchi/Rales Cardio Vascular: RRR, No murmur, gallop, rubs, NL S1 S2 GI: No tenderness/rebounding/guarding, No organomegaly, No hernia, Normal BS's, Nondistended, No mass/bruits, No McBurney tenderness : No CVA tenderness Extremities: No tenderness or effusion, Full ROM, normal strength in all extremities, No edema, Normal digits & nails Neuro/Psych: Alert/oriented, DTR's symmetric, Normal sensory exam, Normal motor strength, Judgement/insight normal, Mood normal, Normal gait, No focal deficits Misc: Normal back, No paraspinal tenderness ED Labs/Radiology/EKG Results - Lab Results Results: Abnormal Lab Results 04/02/18 04/02/18 04/02/18 16:30 16:30 16:30 WBC 9.0 RBC 3.06 L Hgb 11.5 L Hct 32.5 L MCV 106.1 H MCH 37.4 H MCHC Differential 35.3 RDW 13.2 Plt Count 219 MPV 9.4 Add Manual Diff YES Band Neutrophils % 0 Neutrophils (Manual) 61 Lymphocytes 17 L Monocytes 12 H Eosinophils 0 Basophils 0 Platelet Estimate ADEQUATE Macrocytosis 1+ PT 22.4 H INR 2.23 H Sodium 138 Potassium 2.3 L* Chloride 100 Carbon Dioxide 21.9 Anion Gap 18.4 H BUN 14 Creatinine 0.6 Est GFR ( Amer) > 60.0 Est GFR (Non-Af Amer) > 60.0 BUN/Creatinine Ratio 23.3 Glucose 77 Calcium 7.5 L Total Bilirubin 3.4 H AST 38 ALT 12 Alkaline Phosphatase 67 Ammonia Troponin I Total Protein 5.9 L Albumin 2.7 L Globulin 3.2 Albumin/Globulin Ratio 0.8 L TSH Urine Source Urine Color Urine Clarity Urine pH Ur Specific Eloy Urine Protein Urine Glucose (UA) Urine Ketones Urine Blood Urine Nitrate Urine Bilirubin Urine Ictotest Urine Urobilinogen Ur Leukocyte Esterase Urine RBC Urine WBC Ur Epithelial Cells Urine Bacteria Urine Test Urine Opiates Screen Urine Methadone Screen Ur Barbiturates Screen Ur Tricyclics Screen Ur Phencyclidine Scrn Amphetamines Screen U Methamphetamines Scrn U Benzodiazepines Scrn U Cocaine Metab Screen U Cannabinoids Screen Ethyl Alcohol 04/02/18 04/02/18 04/02/18 16:30 16:30 16:30 WBC RBC Hgb Hct MCV MCH MCHC Differential RDW Plt Count MPV Add Manual Diff Band Neutrophils % Neutrophils (Manual) Lymphocytes Monocytes Eosinophils Basophils Platelet Estimate Macrocytosis PT INR Sodium Potassium Chloride Carbon Dioxide Anion Gap BUN Creatinine Est GFR ( Amer) Est GFR (Non-Af Amer) BUN/Creatinine Ratio Glucose Calcium Total Bilirubin AST ALT Alkaline Phosphatase Ammonia Troponin I 0.01 Total Protein Albumin Globulin Albumin/Globulin Ratio TSH 0.94 Urine Source Urine Color Urine Clarity Urine pH Ur Specific Eloy Urine Protein Urine Glucose (UA) Urine Ketones Urine Blood Urine Nitrate Urine Bilirubin Urine Ictotest Urine Urobilinogen Ur Leukocyte Esterase Urine RBC Urine WBC Ur Epithelial Cells Urine Bacteria Urine Test Urine Opiates Screen Urine Methadone Screen Ur Barbiturates Screen Ur Tricyclics Screen Ur Phencyclidine Scrn Amphetamines Screen U Methamphetamines Scrn U Benzodiazepines Scrn U Cocaine Metab Screen U Cannabinoids Screen Ethyl Alcohol < 10 04/02/18 04/02/18 04/02/18 16:30 16:45 16:45 WBC RBC Hgb Hct MCV MCH MCHC Differential RDW Plt Count MPV Add Manual Diff Band Neutrophils % Neutrophils (Manual) Lymphocytes Monocytes Eosinophils Basophils Platelet Estimate Macrocytosis PT INR Sodium Potassium Chloride Carbon Dioxide Anion Gap BUN Creatinine Est GFR ( Amer) Est GFR (Non-Af Amer) BUN/Creatinine Ratio Glucose Calcium Total Bilirubin AST ALT Alkaline Phosphatase Ammonia 63 H Troponin I Total Protein Albumin Globulin Albumin/Globulin Ratio TSH Urine Source CLEAN C Urine Color ORANGE Urine Clarity CLOUDY H Urine pH 6.0 Ur Specific Eloy 1.015 Urine Protein 100 H Urine Glucose (UA) NEGATIVE Urine Ketones 15 H Urine Blood LARGE H Urine Nitrate NEGATIVE Urine Bilirubin MODERATE H Urine Ictotest NEGATIVE Urine Urobilinogen >=8.0 H Ur Leukocyte Esterase LARGE H Urine RBC 2-5 Urine WBC >100 H Ur Epithelial Cells FEW Urine Bacteria MODERATE H Urine Test Urine Opiates Screen NEGATIVE Urine Methadone Screen NEGATIVE Ur Barbiturates Screen NEGATIVE Ur Tricyclics Screen NEGATIVE Ur Phencyclidine Scrn NEGATIVE Amphetamines Screen NEGATIVE U Methamphetamines Scrn NEGATIVE U Benzodiazepines Scrn NEGATIVE U Cocaine Metab Screen NEGATIVE U Cannabinoids Screen NEGATIVE Ethyl Alcohol 04/02/18 16:45 WBC RBC Hgb Hct MCV MCH MCHC Differential RDW Plt Count MPV Add Manual Diff Band Neutrophils % Neutrophils (Manual) Lymphocytes Monocytes Eosinophils Basophils Platelet Estimate Macrocytosis PT INR Sodium Potassium Chloride Carbon Dioxide Anion Gap BUN Creatinine Est GFR ( Amer) Est GFR (Non-Af Amer) BUN/Creatinine Ratio Glucose Calcium Total Bilirubin AST ALT Alkaline Phosphatase Ammonia Troponin I Total Protein Albumin Globulin Albumin/Globulin Ratio TSH Urine Source Urine Color Urine Clarity Urine pH Ur Specific Eloy Urine Protein Urine Glucose (UA) Urine Ketones Urine Blood Urine Nitrate Urine Bilirubin Urine Ictotest Urine Urobilinogen Ur Leukocyte Esterase Urine RBC Urine WBC Ur Epithelial Cells Urine Bacteria Urine Test NEGATIVE Urine Opiates Screen Urine Methadone Screen Ur Barbiturates Screen Ur Tricyclics Screen Ur Phencyclidine Scrn Amphetamines Screen U Methamphetamines Scrn U Benzodiazepines Scrn U Cocaine Metab Screen U Cannabinoids Screen Ethyl Alcohol - Radiology Results Results: CHEST X-RAY = NAD CT SCAN OF THE NECK = NAD ED Assessment - Assessment General Assessment: HYPOKALEMIA WEAKNESS URINARY TRACT INFECTION ED Septic Shock - . Is Septic Shock (SBP<90, OR Lactate>4 mmol\L) present?: No - <6hrs of presentation: Vital Signs: Vital Signs - 8 hr 04/02/18 16:08 Temp 100.5 F HR 100 RR 25 BP 103/74 O2 Sat % 96 ED Reassessment (Disposition) - Diagnosis Diagnosis:: URINARY TRACT INFECTION ALLERGIC REACTION DEHYDRATION - Aftercare/Follow up Instructions Aftercare/Follow-Up Instructions:: Counseled pt regarding lab results/diagnosis & need follow up, Refer to Discharge Instructions, Counseled pt & family regarding lab results/diagnosis & need follow up Medication Prescribed:: Z-STORM, CIPRO, GABAPENTIN - Patient Disposition Discharge/Transfer:: Home Condition at Disposition:: Improved
[2018-04-02 16:44] LABS: HEMATOCRIT 32.5 % (41.0-60); HEMOGLOBIN 11.5 gm/dL (12-16); MEAN CORPUSCULAR HGB CONC 35.3 pg (28.0-36.0); MEAN PLATELET VOLUME 9.4 fl; PLATELET COUNT 219 Th/cmm (150-400); RED BLOOD COUNT 3.06 Mil/cmm (3.80-5.10); RED CELL DISTRIBUTION WIDTH 13.2 % (11.5-20.0)
[2018-04-02 17:00] LABS: ALB/GLOB RATIO 0.8 (1.0-1.8); ALBUMIN 2.7 gm/dL (3.7-5.3); ALKALINE PHOSPHATASE 67 U/L (34-104); ANION GAP 18.4 (7.0-16.0); BILIRUBIN,TOTAL 3.4 mg/dL (0.3-1.0); BUN - UREA NITROGEN 14 mg/dL (7-25); CALCIUM SERUM 7.5 mg/dL (8.6-10.3); CARBON DIOXIDE 21.9 mEq/L (21.0-31.0); CHLORIDE 100 mEq/L (98-107); CREATININE - SERUM 0.6 mg/dL (0.6-1.2); GFR AFRICAN-AMERICAN > 60.0 ml/min (>90); GFR NON AFRICAN-AMERICAN > 60.0 ml/min; GLUCOSE 77 mg/dL (70-105); SGOT 38 U/L (13-39); SGPT/ALT 12 U/L (7-52); SODIUM SERUM 138 mEq/L (136-145); TOTAL PROTEIN,SERUM 5.9 gm/dL (6.0-8.3)
[2018-04-02 17:17] LABS: URINE SOURCE CLEAN C
[2018-04-02 17:18] LABS: URINE BILIRUBIN MODERATE (NEGATIVE); URINE BLOOD LARGE (NEGATIVE); URINE GLUCOSE (UA) NEGATIVE (NEGATIVE); URINE KETONE 15 mg/dL (NEGATIVE); URINE LEUKOCYTE ESTERASE LARGE (NEGATIVE); URINE MICROSCOPIC INDICATED? YES; URINE NITRATE NEGATIVE (NEGATIVE); URINE PROTEIN 100 mg/dL (NEGATIVE); URINE UROBILINOGEN >=8.0 E.U./dL (0.2 - 1.0)
[2018-04-02 17:46] LABS: INR 2.23 (0.5-1.4); PROTHROMBIN TIME (TEST) 22.4 SECONDS (9.5-11.5)
[2018-04-02 17:48] LABS: MEAN CELL VOLUME 106.1 fl (81-100); MEAN CORPUSCULAR HEMOGLOBIN 37.4 pg (27.0-31.0)
[2018-04-02 17:50] LABS: POTASSIUM SERUM 2.3 mEq/L (3.5-5.1)
[2018-04-02 17:53] LABS: AMPHETAMINE URINE NEGATIVE (NEGATIVE); BARBITURATES URINE NEGATIVE (NEGATIVE); BENZODIAZEPINES QUAL URINE NEGATIVE (NEGATIVE); CANNABINOID THC NEGATIVE (NEGATIVE); COCAINE METABOLITE QUAL URINE NEGATIVE (NEGATIVE); METHADONE URINE NEGATIVE (NEGATIVE); METHAMPHETAMINES QUAL URINE NEGATIVE (NEGATIVE); OPIATES (MORPHINE) QUAL. URINE NEGATIVE (NEGATIVE); PHENCYCLIDINE (PCP) URINE NEGATIVE (NEGATIVE); TRICYCLICS (TCA) QUAL. URINE NEGATIVE (NEGATIVE)
[2018-04-02 17:58] LABS: URINE CLARITY CLOUDY (CLEAR); URINE COLOR ORANGE
[2018-04-02] MEDS ORDERED: Potassium Chloride Elixir 20 mEq /15 mL UDC GT ONE (18:00)
[2018-04-02] MEDS ORDERED: Potassium Chloride Elixir 20 mEq /15 mL UDC ONE (18:01)
[2018-04-02 18:07] LABS: URINE ICTOTEST NEGATIVE (NEGATIVE)
[2018-04-02 18:08] LABS: URINE BACTERIA MODERATE /hpf (NONE SEEN); URINE EPITHELIAL CELLS FEW /lpf (FEW); URINE WBC >100 /hpf (0-5)
[2018-04-02] MEDS ORDERED: Sodium Chloride 0.9% 1,000 ML IV ONE (18:12)
[2018-04-02] MEDS ORDERED: Lactated Ringer 1,000 ML IV SCH (18:30)
[2018-04-02 18:38] LABS: BAND NEUTROPHILE 0 % (0-10); BASOPHIL 0 % (0-3); EOSINOPHIL 0 % (0-5); LYMPHOCYTE 17 % (20-50); MONOCYTE 12 % (2-10); NEUTROPHILS 61 % (40-80)
[2018-04-02 18:42] LABS: PLATELET ESTIMATE ADEQUATE (NORMAL)
[2018-04-02] MEDS ORDERED: IOHEXOL 300mgI/mL 100 ML VIAL ONE (19:39)
--- NOTE | 2018-04-03 09:21 | Diagnostic Imaging Report ---
Exam: CT examination of the neck history: Pain. Total DLP equals 226 CTDI equals 9.8. Findings: Multiple contiguous thin section of the neck were obtained from the base of skull to the thoracic outlet with administration of intravenous contrast material, no prior studies available comparison. The study demonstrates normal enhancement of the vascular structures throughout the neck. The salivary glands intact. Piriform sinuses and vallecula are normal. The epiglottis is intact. The bony structures are normal. The thyroid gland is intact. IMPRESSION: Normal examination of the soft tissues of the neck.
--- NOTE | 2018-04-03 09:22 | Diagnostic Imaging Report ---
Chest x-ray single view History: Shortness of breath Comparison: 01/20/2018 The heart size is normal. No focal pulmonary parenchymal processes. No hilar or mediastinal abnormalities. Impression: No acute abnormalities
== END 2018-04-02 21:50 | disposition home or self-care (01) ==
LOC: ER 15:45
DX: E86.0 Dehydration (principal); T78.40XA Allergy, unspecified, initial encounter; N39.0 Urinary tract infection, site not specified; E87.6 Hypokalemia; J02.9 Acute pharyngitis, unspecified; M19.90 Unspecified osteoarthritis, unspecified site; X58.XXXA Exposure to other specified factors, initial encounter
CPT/HCPCS: 99285; 96372 ×2; 96374; 96375; 93005; 71045; 70491; 84484; 36415; 80307; 84443; 86592; 85007; 85025; 85610; 87086; 81001; 80320; 82140; 81025; 80053; 87040; J1885; J2060; J0696; J2930; Q9967; Z7610

== ENCOUNTER 2018-04-23 15:29 | Inpatient (IN) | payer MEDICAID ==
[2018-04-23] MEDS ORDERED: Dextrose 50% 50 mL Abboject IVP STA (15:45)
[2018-04-23] MEDS ORDERED: Dextrose 50% 50 mL Abboject IVP ONE (15:46)
--- NOTE | 2018-04-23 15:57 | ED Physician Chart ---
ED Chief Complaint/HPI - Patient Information Date Seen:: 04/23/18 Time Seen:: 15:50 Chief Complaint:: altered level of consciousness History of Present Illness:: THIS IS A 52 YO FEMALE BIB EMS WHO WAS FOUND DOWN ON THE FLOOR AT HOME. SHE HAS BEEN DISORIENTED. Allergies:: Allergies Allergy/AdvReac Type Severity Reaction Status Date / Time UNOBTN - Unobtainable Allergy Verified 04/23/18 15:41 Vitals:: Vital Signs - 8 hr 04/23/18 15:42 Temp 98.2 F HR 89 RR 19 BP 135/85 O2 Sat % 99 Historian:: Patient Review:: Nurse's Note Reviewed ED Review of Systems - Review of Systems General/Constitutional: Other (THIS PATIENT IS UNABLE TO GIVE A REVIEW OF SYSTEMS.) ED Past Medical History - Past Medical History Obtainable: Yes Past Medical History: Other (ALCOHOL ABUSE) Family History: None Social History: Non Smoker, Alcohol, No Drug Use, Lives Alone Surgical History: other (UNKNOWN) Family Medical History - Family Member Mother History Unknown: Yes ED Physical Exam - Physical Examination General/Constitutional: Awake, Well-developed, well-nourished, Alert, No distress, GCS 15, Non-toxic appearing, Ambulatory Other Gen/Cons comments:: THIS PATIENT IS LETHARGIC AND DISORIENTED TIMES FOUR Head: Atraumatic Eyes: Lids, conjuctiva normal, PERRL, EOMI Skin: Nl inspection, No rash, No skin lesions, No ecchymosis, Well hydrated, No lymphadenopathy ENMT: External ears, nose nl, Nasal exam nl, Lips, teeth, gums nl Neck: Nontender, Full ROM w/o pain, No JVD, No nuchal rigidity, No bruit, No mass, No stridor Respiratory: Nl effort/Exclusion, Clear to Auscultation, No Wheeze/Rhonchi/Rales Cardio Vascular: RRR, No murmur, gallop, rubs, NL S1 S2 GI: No tenderness/rebounding/guarding, No organomegaly, No hernia, Normal BS's, Nondistended, No mass/bruits, No McBurney tenderness : No CVA tenderness Extremities: No tenderness or effusion, Full ROM, normal strength in all extremities, No edema, Normal digits & nails Neuro/Psych: Alert/oriented, DTR's symmetric, Normal sensory exam, Normal motor strength, Judgement/insight normal, Mood normal, Normal gait, No focal deficits Misc: Normal back, No paraspinal tenderness ED Labs/Radiology/EKG Results - Lab Results Results: Abnormal Lab Results 04/23/18 04/23/18 04/23/18 16:13 16:13 16:13 WBC 4.7 L RBC 2.97 L Hgb 10.9 L Hct 31.7 L MCV 106.8 H MCH 36.6 H MCHC Differential 34.3 RDW 12.5 Plt Count 198 MPV 8.4 Neutrophils % 51.2 Lymphocytes % 33.2 Monocytes % 12.6 H Eosinophils % 2.6 Basophils % 0.4 PT 12.3 H INR 1.19 PTT (Actin FS) 27.2 Sodium 139 Potassium 2.5 L* Chloride 103 Carbon Dioxide 26.5 Anion Gap 12.0 BUN 12 Creatinine 0.9 Est GFR ( Amer) > 60.0 Est GFR (Non-Af Amer) > 60.0 BUN/Creatinine Ratio 13.3 Glucose 321 H Calcium 7.3 L Total Bilirubin 2.3 H AST 54 H ALT 21 Alkaline Phosphatase 77 Troponin I Total Protein 5.5 L Albumin 2.4 L Globulin 3.1 Albumin/Globulin Ratio 0.8 L Amylase 31 Lipase 9 L Serum , Qual Ethyl Alcohol < 10 04/23/18 04/23/18 16:13 16:13 WBC RBC Hgb Hct MCV MCH MCHC Differential RDW Plt Count MPV Neutrophils % Lymphocytes % Monocytes % Eosinophils % Basophils % PT INR PTT (Actin FS) Sodium Potassium Chloride Carbon Dioxide Anion Gap BUN Creatinine Est GFR ( Amer) Est GFR (Non-Af Amer) BUN/Creatinine Ratio Glucose Calcium Total Bilirubin AST ALT Alkaline Phosphatase Troponin I 0.18 H* Total Protein Albumin Globulin Albumin/Globulin Ratio Amylase Lipase Serum , Qual NEGATIVE Ethyl Alcohol - Radiology Results Results: CT SCAN OF THE HEAD= NAD CHEST X-RAY = NAD - EKG Interpretations EKG Time:: 15:51 Rate & Rhythm: RATE=88 SINUS [place]: LEFT Intervals: NO ECTOPIC ED Assessment - Assessment General Assessment: BECAUSE HER GLUCOSE WAS 68, SHE WAS GIVEN D50W IV PUSH. SHE ALSO HAS A POTASSIUM OF 2.5 AND WAS GIVEN 40 MEQ OF POTASSIUM. SHE WILL BE ADMITTED FOR A NEUROLOGICAL EVALUATION AND MONITORING OF THE HER HEART AND CALORIC INTAKE. ED Septic Shock - . Is Septic Shock (SBP<90, OR Lactate>4 mmol\L) present?: No - <6hrs of presentation: Vital Signs: Vital Signs - 8 hr 04/23/18 15:42 Temp 98.2 F HR 89 RR 19 BP 135/85 O2 Sat % 99 ED Reassessment (Disposition) - Diagnosis Diagnosis:: ALTERED LEVEL OF CONSCIOUSNESS ELEVATED TROPONIN ELECTROLYTE IMBALANCE - Patient Disposition Discharge/Transfer:: Acute Care w/in this hosp Admitting Medical Physician:: Mele Hardin Condition at Disposition:: Improved
[2018-04-23 16:23] LABS: % BASOPHILS 0.4 % (0.0-2.0); % EOSINOPHILS 2.6 % (0.0-5.0); % LYMPHOCYTES 33.2 % (20.0-50.0); % MONOCYTES 12.6 % (2.0-10.0); % NEUTROPHILS 51.2 % (40.0-80.0); EOSINOPHILE ABSOLUTE 0.1 Th/cmm (0.1-0.4); HEMATOCRIT 31.7 % (41.0-60); HEMOGLOBIN 10.9 gm/dL (12-16); LYMPHOCYTE ABSOLUTE 1.6 Th/cmm (1.5-3.0); MEAN CORPUSCULAR HEMOGLOBIN 36.6 pg (27.0-31.0); MEAN CORPUSCULAR HGB CONC 34.3 pg (28.0-36.0); MEAN PLATELET VOLUME 8.4 fl; MONOCYTE ABSOLUTE 0.6 Th/cmm (0.3-1.0); NEUTROPHILE ABSOLUTE 2.4 Th/cmm (1.8-8.0); PLATELET COUNT 198 Th/cmm (150-400); RED BLOOD COUNT 2.97 Mil/cmm (3.80-5.10); RED CELL DISTRIBUTION WIDTH 12.5 % (11.5-20.0); WHITE BLOOD COUNT 4.7 Th/cmm (4.8-10.8)
[2018-04-23 16:25] LABS: MEAN CELL VOLUME 106.8 fl (81-100)
[2018-04-23 16:39] LABS: INR 1.19 (0.5-1.4); PROTHROMBIN TIME (TEST) 12.3 SECONDS (9.5-11.5)
[2018-04-23 16:42] LABS: ALB/GLOB RATIO 0.8 (1.0-1.8); ALBUMIN 2.4 gm/dL (3.7-5.3); ALKALINE PHOSPHATASE 77 U/L (34-104); AMYLASE SERUM 31 U/L (29-103); BILIRUBIN,TOTAL 2.3 mg/dL (0.3-1.0); BUN - UREA NITROGEN 12 mg/dL (7-25); CALCIUM SERUM 7.3 mg/dL (8.6-10.3); CARBON DIOXIDE 26.5 mEq/L (21.0-31.0); CHLORIDE 103 mEq/L (98-107); CREATININE - SERUM 0.9 mg/dL (0.6-1.2); GFR AFRICAN-AMERICAN > 60.0 ml/min (>90); GFR NON AFRICAN-AMERICAN > 60.0 ml/min; GLUCOSE 321 mg/dL (70-105); LIPASE 9 U/L (11-82); SGOT 54 U/L (13-39); SGPT/ALT 21 U/L (7-52); SODIUM SERUM 139 mEq/L (136-145); TOTAL PROTEIN,SERUM 5.5 gm/dL (6.0-8.3)
[2018-04-23] MEDS ORDERED: Sodium Chloride 0.45% 1,000 ML IV ONE (16:43)
[2018-04-23 16:46] LABS: POTASSIUM SERUM 2.5 mEq/L (3.5-5.1)
[2018-04-23] MEDS ORDERED: Potassium Chloride Elixir 20 mEq /15 mL UDC PO ONE ×2 (16:47→20:13)
[2018-04-23] MEDS ORDERED: Potassium Chloride Elixir 20 mEq /15 mL UDC ONE ×2 (16:49→20:13)
[2018-04-23 17:42] LABS: URINE SOURCE MIDSTREAM
[2018-04-23 17:43] LABS: URINE BILIRUBIN SMALL (NEGATIVE); URINE BLOOD NEGATIVE (NEGATIVE); URINE GLUCOSE (UA) 100 mg/dL (NEGATIVE); URINE KETONE NEGATIVE (NEGATIVE); URINE LEUKOCYTE ESTERASE SMALL (NEGATIVE); URINE NITRATE NEGATIVE (NEGATIVE); URINE PROTEIN NEGATIVE (NEGATIVE)
[2018-04-23 17:44] LABS: URINE COLOR YELLOW; URINE MICROSCOPIC INDICATED? YES
[2018-04-23 17:47] LABS: URINE CLARITY HAZY (CLEAR)
[2018-04-23 17:48] LABS: URINE BACTERIA 1+ /hpf (NONE SEEN); URINE EPITHELIAL CELLS MODERATE /lpf (FEW); URINE RBC 0-2 /hpf (0-5); URINE YEAST FEW /hpf (NONE SEEN)
[2018-04-23] MEDS ORDERED: Lactated Ringer 1,000 ML IV ONE (18:10)
[2018-04-23 20:06] LABS: BUN - UREA NITROGEN 11 mg/dL (7-25); CALCIUM SERUM 7.6 mg/dL (8.6-10.3); CHLORIDE 107 mEq/L (98-107); CREATININE - SERUM 0.8 mg/dL (0.6-1.2); GFR AFRICAN-AMERICAN > 60.0 ml/min (>90); GFR NON AFRICAN-AMERICAN > 60.0 ml/min; SODIUM SERUM 142 mEq/L (136-145)
[2018-04-23 20:06] LABS: AMPHETAMINE URINE NEGATIVE (NEGATIVE); BARBITURATES URINE NEGATIVE (NEGATIVE); BENZODIAZEPINES QUAL URINE NEGATIVE (NEGATIVE); CANNABINOID THC NEGATIVE (NEGATIVE); COCAINE METABOLITE QUAL URINE NEGATIVE (NEGATIVE); METHADONE URINE NEGATIVE (NEGATIVE); METHAMPHETAMINES QUAL URINE NEGATIVE (NEGATIVE); OPIATES (MORPHINE) QUAL. URINE NEGATIVE (NEGATIVE); PHENCYCLIDINE (PCP) URINE NEGATIVE (NEGATIVE); TRICYCLICS (TCA) QUAL. URINE NEGATIVE (NEGATIVE)
[2018-04-23 20:07] LABS: GLUCOSE 85 mg/dL (70-105)
[2018-04-23] MEDS ORDERED: Mag Sulfate 2gm/50mL Premix 2 GM/50 ML BAG IV ONE (20:27)
[2018-04-23] MEDS ORDERED: MULTIVITAMIN IV ONE (22:00)
[2018-04-23] MEDS ORDERED: NS W IV ONE (22:00)
[2018-04-23] MEDS ORDERED: KCL IV ONE (22:00)
[2018-04-23] MEDS ORDERED: 0.45% NS w/20 mEq KCl 1,000 ML IV ONE (22:56)
[2018-04-23] MEDS ORDERED: Multivitamin Inj 10 mL Vial IV ONE (22:56)
[2018-04-24 05:25] VITALS: BP 133/71
[2018-04-24 07:22] LABS: EOSINOPHILE ABSOLUTE 0.3 Th/cmm (0.1-0.4); HEMATOCRIT 31.6 % (41.0-60); LYMPHOCYTE ABSOLUTE 1.7 Th/cmm (1.5-3.0)
[2018-04-24 07:24] LABS: % EOSINOPHILS 5.3 % (0.0-5.0); % LYMPHOCYTES 30.5 % (20.0-50.0); % MONOCYTES 10.9 % (2.0-10.0); % NEUTROPHILS 53.3 % (40.0-80.0); HEMOGLOBIN 11.2 gm/dL (12-16); MEAN CORPUSCULAR HEMOGLOBIN 37.7 pg (27.0-31.0); MEAN CORPUSCULAR HGB CONC 35.4 pg (28.0-36.0); MEAN PLATELET VOLUME 8.7 fl; MONOCYTE ABSOLUTE 0.6 Th/cmm (0.3-1.0); NEUTROPHILE ABSOLUTE 3.1 Th/cmm (1.8-8.0); PLATELET COUNT 196 Th/cmm (150-400); RED BLOOD COUNT 2.96 Mil/cmm (3.80-5.10); RED CELL DISTRIBUTION WIDTH 12.6 % (11.5-20.0)
[2018-04-24 07:28] LABS: MEAN CELL VOLUME 106.6 fl (81-100)
[2018-04-24 07:34] LABS: WHITE BLOOD COUNT 5.7 Th/cmm (4.8-10.8)
[2018-04-24 07:38] LABS: ALB/GLOB RATIO 0.8 (1.0-1.8); ALBUMIN 2.5 gm/dL (3.7-5.3); ALKALINE PHOSPHATASE 81 U/L (34-104); ANION GAP 11.8 (7.0-16.0); BUN - UREA NITROGEN 8 mg/dL (7-25); CALCIUM SERUM 7.7 mg/dL (8.6-10.3); CHLORIDE 109 mEq/L (98-107); CREATININE - SERUM 0.7 mg/dL (0.6-1.2); CREATININE KINASE 129 U/L (30-223); GFR AFRICAN-AMERICAN > 60.0 ml/min (>90); GFR NON AFRICAN-AMERICAN > 60.0 ml/min; GLUCOSE 91 mg/dL (70-105); MAGNESIUM 1.8 mg/dL (1.9-2.7); POTASSIUM SERUM 3.8 mEq/L (3.5-5.1); SGOT 63 U/L (13-39); SGPT/ALT 25 U/L (7-52); SODIUM SERUM 142 mEq/L (136-145); TOTAL PROTEIN,SERUM 5.8 gm/dL (6.0-8.3)
--- NOTE | 2018-04-24 12:32 | Diagnostic Imaging Report ---
Portable chest x-ray Time: 616 History: Chest pain Allowing for portable technique the heart size is normal. No focal pulmonary parenchymal processes. No hilar or mediastinal abnormalities. Impression: No acute abnormalities.
--- NOTE | 2018-04-24 12:42 | Diagnostic Imaging Report ---
CT scan of the brain without contrast History: ALOC Total DLP equals 585 CTDI equals 32.6 Axial sections were obtained from the base of the skull to the vertex. There is a normal ventricular system size. No focal parenchymal lesions are seen. No evidence of any mass effect or shift of midline structures. No extra-axial masses or abnormal fluid collections. Impression: Negative examination
[2018-04-24] MEDS: D5-0.45NS 1,000 ML IV SCH (13:45)
[2018-04-24] MEDS ORDERED: IOHEXOL 300mgI/mL 100 ML VIAL IVP ONE (14:48)
[2018-04-24] MEDS: Thiamine 100 mg/mL 2mL Vial IM SCH (15:58)
[2018-04-24] MEDS: Multivitamin w/ Minerals Tab PO SCH (15:58)
[2018-04-24] MEDS ORDERED: Mag Sulfate 2gm/50mL Premix 2 GM/50 ML BAG IV ONE (16:00)
--- NOTE | 2018-04-24 16:01 | History & Physical ---
ADMIT DATE: 04/24/2018 PATIENT IDENTIFICATION: A 52-year-old female. CHIEF COMPLAINT: Unable to obtain. HISTORY SOURCE: Talking to the Emergency Room MD and the patient's family member. HISTORY OF PRESENT ILLNESS: A 52-year-old female with longstanding history of alcoholism, has not seen doctor for a long time, noticed by patient's family member that she was on the floor and extremely agitated and confused. According to the patient's family member that she might have drank some alcohol yesterday as well. When the patient arrived to the Emergency Room by 911, the patient was worked up by ER MD. According to the ER MD evaluation, the patient has UTI and hypokalemia. The patient was advised to be admitted. I am evaluating this patient next day and it is noted that the patient is confused and moving upper and lower extremity and unable to provide a meaningful history. The patient's lab has revealed significant macrocytosis as well as low potassium on day of admission and now has been normal and magnesium on admission was extremely low at 1. I do not have any other lab test except bilirubin was reported 2.3, total with AST and ALT of 54 and 21, consistent with alcoholic liver disease. PAST MEDICAL HISTORY: Not available. MEDICATIONS AT HOME: None. ALLERGIES: None. SOCIAL HISTORY: Lives with a friend in [place], no smoking use but alcohol use, no drug use. FAMILY MEDICAL HISTORY: Unavailable. REVIEW OF SYSTEMS: Unable to get meaningful history. PHYSICAL EXAMINATION: GENERAL: A 52-year-old ill appearing, lying in the bed, not providing any meaningful history: VITAL SIGNS: Temperature 97.8, pulse 90, respiratory rate 18, blood pressure 128/70. HEENT: Normocephalic, atraumatic. Pupils react to light. Tongue was pink and coated. NECK: Supple, no JVD. HEART: Regular. CHEST AND LUNGS: Equal in expansion, no expiratory wheezing. ABDOMEN: Soft. No guarding, no rigidity. Bowel sounds present. No palpable mass. EXTREMITIES: No edema. Peripheral pulses are +1. No calf tenderness. NEUROLOGIC: Unable to assess. No facial asymmetry. Moving upper and lower extremity and trying to follow commands. AVAILABLE DIAGNOSTIC DATA: Has been reviewed. CLINICAL IMPRESSION: 1. Altered mental status, baseline unknown, chronic alcohol use. Underlying etiology needs to determine, ruled out underlying alcohol-induced dementia or Wernicke-Korsakoff syndrome. 2. Alcoholic liver disease. 3. Macrocytosis. PLAN: The patient has been admitted at this time to medical floor telemetry unit, give IV fluid, B12, folate, and thiamine to be replaced, check CT scan of the head with contrast, also get Neurology evaluation. The patient's slightly elevated troponin needs evaluation, could be related to her underlying illness, get Cardiology evaluation and follow the recommendation as well. Neuro check will be continued. Seizure precaution will be given. Ativan will be provided and we will also wait for the alcohol withdrawal symptoms. I do not see any sign of withdrawal at this time. Care plan has been reviewed and discussed. JOB# [id number]
--- NOTE | 2018-04-25 05:33 | Consultation ---
DATE OF CONSULTATION: 04/24/2018 HISTORY OF PRESENT ILLNESS: This 52-year-old female was seen and examined at the courtesy of Dr. Hardin. She was brought to the Emergency Room. The history is not much available from the patient. The history obtained from the chart is that the patient was found on the floor with confusion, increasing agitation. When she was evaluated in the Emergency Room, she was found to have some expressive aphasia. There is no proper history available, we do not know what medications the patient is on. PAST MEDICAL HISTORY: Not much available from the patient. FAMILY HISTORY: Not much available from the patient. SOCIAL HISTORY: Not much available from the patient. REVIEW OF SYSTEMS: Not much available from the patient. PHYSICAL EXAMINATION: VITAL SIGNS: Heart rate was 86, blood pressure was 125/88, temperature 97.9, respirations 18, O2 saturation 98%. SKIN: Normal. HEENT: Head: Normocephalic. Eyes: Conjunctivae were pink. There is no icterus in the eyes. Pupils reacting to light. NECK: There was no increased jugular venous distention, no thyromegaly, no lymphadenopathy. Carotids equal both sides. CHEST: Bilaterally symmetrical, moved well with respiration. Respiratory movements equal both sides. Trachea is central. There is note to percussion. Breath sounds: No rales, no rhonchi. CARDIOVASCULAR SYSTEM: PMI not well localized. There is no pulsation or thrill. No parasternal heave. S1 normal, S2 physiologic. There were no S3, no rub. ABDOMEN: Soft, no tenderness, no rigidity, no guarding and no organomegaly. Bowel sounds normal. NEUROLOGIC: The patient is unable to communicate clearly and properly. LABORATORY AND DIAGNOSTIC DATA: On reviewing the lab, troponin was slightly elevated to 0.18, then 0.15 and then 0.08. EKG revealed sinus rhythm. There were no acute changes. CT of the brain was done, which did not show any pathology. INR was 1.19. Sodium was 142, potassium initially was 3 and the repeat one was 3.8, chloride 109, carbon dioxide 25, BUN is 11, creatinine 0.7, GFR more than 60, glucose was 85, calcium was low at 7.7, magnesium was also low. The patient was given mag sulfate, repeat magnesium 1.8. AST was high at 54, ALT 21, alkaline phosphatase 77. Ammonia level was 38 was 129, albumin was 2.5, amylase 31, lipase 9, TSH 3.97. Urine for drug screening was negative. Alcohol level was less than 10. IMPRESSION: Slightly elevated troponin level, significance of which is not very clear. If any, we will have to rule out any possibility of myocardial wall injury. The patient was found on the floor with increasing agitation and confusion, etiology to be determined. History of alcoholism in the past. Expressive aphasia, rule out any cerebrovascular accident. We will repeat the EKG. We will get echocardiogram to evaluate left ventricular function and valvular structure and also get lipid profile, some B12 and folic acid. Neuro evaluation is awaited. The patient will be followed now by Dr. Garfield Olivier from the morning. JOB# [id number]
[2018-04-25 06:18] LABS: % BASOPHILS 1.4 % (0.0-2.0); % EOSINOPHILS 6.1 % (0.0-5.0); % LYMPHOCYTES 32.4 % (20.0-50.0); % MONOCYTES 10.5 % (2.0-10.0); % NEUTROPHILS 49.6 % (40.0-80.0); BASOPHILE ABSOLUTE 0.1 Th/cumm (0-0.2); EOSINOPHILE ABSOLUTE 0.3 Th/cmm (0.1-0.4); HEMATOCRIT 31.4 % (41.0-60); HEMOGLOBIN 10.9 gm/dL (12-16); LYMPHOCYTE ABSOLUTE 1.7 Th/cmm (1.5-3.0); MEAN CORPUSCULAR HEMOGLOBIN 37.2 pg (27.0-31.0); MEAN CORPUSCULAR HGB CONC 34.8 pg (28.0-36.0); MEAN PLATELET VOLUME 8.7 fl; MONOCYTE ABSOLUTE 0.5 Th/cmm (0.3-1.0); NEUTROPHILE ABSOLUTE 2.6 Th/cmm (1.8-8.0); PLATELET COUNT 192 Th/cmm (150-400); RED BLOOD COUNT 2.93 Mil/cmm (3.80-5.10); RED CELL DISTRIBUTION WIDTH 12.8 % (11.5-20.0); WHITE BLOOD COUNT 5.2 Th/cmm (4.8-10.8)
[2018-04-25] MEDS: D5-0.45NS 1,000 ML IV SCH ×2 (06:21→20:35)
[2018-04-25 06:59] LABS: ALB/GLOB RATIO 0.8 (1.0-1.8); ALBUMIN 2.4 gm/dL (3.7-5.3); ALKALINE PHOSPHATASE 82 U/L (34-104); ANION GAP 10.5 (7.0-16.0); BILIRUBIN,TOTAL 2.4 mg/dL (0.3-1.0); BUN - UREA NITROGEN 5 mg/dL (7-25); CALCIUM SERUM 8.2 mg/dL (8.6-10.3); CARBON DIOXIDE 23.6 mEq/L (21.0-31.0); CHLORIDE 107 mEq/L (98-107); CHOLESTEROL 126 mg/dL (<200); CREATININE - SERUM 0.6 mg/dL (0.6-1.2); GFR AFRICAN-AMERICAN > 60.0 ml/min (>90); GFR NON AFRICAN-AMERICAN > 60.0 ml/min; GLUCOSE 100 mg/dL (70-105); HDL -HIGH DENSITY LIPOPROTEIN 36 mg/dL (23-92); POTASSIUM SERUM 3.1 mEq/L (3.5-5.1); SGOT 61 U/L (13-39); SGPT/ALT 26 U/L (7-52); SODIUM SERUM 138 mEq/L (136-145); TOTAL PROTEIN,SERUM 5.6 gm/dL (6.0-8.3); TRIGLYCERIDES 75 mg/dL (<150)
--- NOTE | 2018-04-25 08:40 | Diagnostic Imaging Report ---
Hepatic ultrasound HISTORY: Cirrhosis There is incomplete visualization of the liver particularly of the left lobe due to a large amount of bowel gas. No obvious focal lesions seen within the right lobe. No intrahepatic biliary dilatation. IMPRESSION: 1. Incomplete visualization of the liver due to bowel gas. No obvious focal abnormalities If needed, a CT scan would provide additional evaluation
[2018-04-25] MEDS ORDERED: Potassium Chloride 20 mEq ER Tab PO ONE (09:10)
[2018-04-25] MEDS: Multivitamin w/ Minerals Tab PO SCH (09:34)
[2018-04-25] MEDS: Thiamine 100 mg/mL 2mL Vial IM SCH (09:34)
[2018-04-25] MEDS: Pantoprazole 40 mg EC Tab PO SCH (09:38)
--- NOTE | 2018-04-25 09:40 | Progress Notes ---
DATE: SUBJECTIVE: A 52-year-old female patient, seen and examined. The patient is lying in the bed. The patient is more alert, trying to comprehend, but unable to understand her at all. The patient is moving upper and lower extremity without any difficulty. PHYSICAL EXAMINATION: VITAL SIGNS: Temperature 98.2, pulse is 82, respiratory rate 18, blood pressure 116/70. HEENT: No facial asymmetry. NECK: Supple, no JVD. HEART: Regular. CHEST AND LUNGS: Equal in expansion, no expiratory wheezing. ABDOMEN: Soft. No guarding, no rigidity. Bowel sounds present. No palpable mass. EXTREMITIES: No edema. AVAILABLE DIAGNOSTIC DATA: Potassium of 3.1, normal BUN and creatinine. Hemoglobin 10.9, MCV of 107, alkaline phosphatase is normal. Ammonia is normal. AST is 61, ALT is 26. Total bilirubin is 2.4. CLINICAL IMPRESSION: 1. Encephalopathy with some improvement. 2. Microcytic anemia secondary to liver disease. 3. Alcoholic liver disease. 4. Hypokalemia. 5. Generalized debility. 6. Chronic alcoholism. Social issues need to be addressed. PLAN: 1. Recommend to replace potassium. 2. Advance diet. 3. Correct electrolytes. 4. Await further workup. 5. General nursing care. 6. Follow lab. 7. Follow consult recommendation. 8. Care plan reviewed and discussed with staff. JOB# [id number]
[2018-04-25 13:08] LABS: HEP A AB IGM Negative (Negative); HEP B CORE IGM Negative (Negative); HEP B SURFACE AG QL Negative (Negative); HEP C ANTIBODY <0.1 s/co ratio (0.0-0.9)
--- NOTE | 2018-04-25 14:12 | Diagnostic Imaging Report ---
CT scan of the brain with intravenous contrast HISTORY: Stroke, CVA Total DLP equals 1084 CTDI equals 65.0 Axial sections were obtained from the base of the skull to the vertex following administration of intravenous contrast. There is a normal ventricular system size. No focal parenchymal lesions. No mass effect or shift of midline structures. No abnormal foci or regions of enhancement following contrast administration. No extra-axial masses or abnormal fluid collections. IMPRESSION: No acute abnormalities
[2018-04-26 06:25] LABS: EOSINOPHILE ABSOLUTE 0.4 Th/cmm (0.1-0.4); HEMATOCRIT 30.5 % (41.0-60); HEMOGLOBIN 10.6 gm/dL (12-16); RED BLOOD COUNT 2.87 Mil/cmm (3.80-5.10); WHITE BLOOD COUNT 5.6 Th/cmm (4.8-10.8)
[2018-04-26 06:56] LABS: % BASOPHILS 0.8 % (0.0-2.0); % EOSINOPHILS 7.1 % (0.0-5.0); % LYMPHOCYTES 36.5 % (20.0-50.0); % MONOCYTES 11.2 % (2.0-10.0); % NEUTROPHILS 44.4 % (40.0-80.0); MEAN CORPUSCULAR HEMOGLOBIN 36.8 pg (27.0-31.0); MEAN CORPUSCULAR HGB CONC 34.6 pg (28.0-36.0); MEAN PLATELET VOLUME 9.7 fl; MONOCYTE ABSOLUTE 0.6 Th/cmm (0.3-1.0); NEUTROPHILE ABSOLUTE 2.6 Th/cmm (1.8-8.0); PLATELET COUNT 200 Th/cmm (150-400); RED CELL DISTRIBUTION WIDTH 12.6 % (11.5-20.0)
[2018-04-26 07:13] LABS: MEAN CELL VOLUME 106.4 fl (81-100)
[2018-04-26 08:19] LABS: ALB/GLOB RATIO 0.8 (1.0-1.8); ALBUMIN 2.4 gm/dL (3.7-5.3); ALKALINE PHOSPHATASE 77 U/L (34-104); BILIRUBIN,TOTAL 1.7 mg/dL (0.3-1.0); BUN - UREA NITROGEN 3 mg/dL (7-25); CALCIUM SERUM 8.3 mg/dL (8.6-10.3); CHLORIDE 111 mEq/L (98-107); CREATININE - SERUM 0.6 mg/dL (0.6-1.2); GFR AFRICAN-AMERICAN > 60.0 ml/min (>90); GFR NON AFRICAN-AMERICAN > 60.0 ml/min; GLUCOSE 94 mg/dL (70-105); POTASSIUM SERUM 3.7 mEq/L (3.5-5.1); SGOT 47 U/L (13-39); SGPT/ALT 22 U/L (7-52); SODIUM SERUM 138 mEq/L (136-145); TOTAL PROTEIN,SERUM 5.4 gm/dL (6.0-8.3)
[2018-04-26] MEDS: Thiamine 100 mg/mL 2mL Vial IM SCH (08:59)
[2018-04-26] MEDS: Pantoprazole 40 mg EC Tab PO SCH ×2 (08:59→09:09)
[2018-04-26] MEDS: Multivitamin w/ Minerals Tab PO SCH ×2 (09:01→09:09)
[2018-04-26 09:52] LABS: ANION GAP 13.4 (7.0-16.0); CARBON DIOXIDE 17.3 mEq/L (21.0-31.0)
[2018-04-26] MEDS: D5-0.45NS 1,000 ML IV SCH (10:27)
--- NOTE | 2018-04-26 16:08 | Cardiology ---
04/25/2018 M-MODE ECHOCARDIOGRAM: Mitral valve; anterior leaflet of mitral valve shows normal excursion, EF velocity. Posterior leaflet of mitral valve shows normal excursion. Left ventricular posterior wall showed normal thickness, excursion. Interventricular septum showed normal thickness, excursion. Ejection fraction 60%. Left atrium normal. Aortic root shows normal dimension, normal excursion of aortic leaflets. CONCLUSION: Normal M-mode echo, ejection fraction 60%. 2D ECHO: Long axis view showed normal-sized left ventricle with normal wall motion, mitral valve shows normal excursion. Left atrium normal. Aortic root shows normal dimension, normal excursion of aortic leaflets. Short axis view of mitral valve normal. Short axis view of aortic valve normal. Apical four chamber view showed normal sized left ventricle, left atrium, right ventricle, right atrium, tricuspid and mitral valve. Ejection fraction 60%. Doppler study shows trace pulmonary regurgitation, moderate mitral regurgitation. Right ventricular systolic pressure of 39 mmHg. CONCLUSION: Trace pulmonary regurgitation, mild tricuspid regurgitation, moderate mitral regurgitation, ejection fraction 60%. [facility]# [id number]
--- NOTE | 2018-04-26 19:13 | Consultation ---
DATE OF CONSULTATION: 04/25/2018 NEUROLOGY CONSULTATION HISTORY OF PRESENT ILLNESS: A 52-year-old female who found down at home on the floor. Very confused. She is a little bit more coherent, but continues to be still quite confused. Not able to give much coherent history. The patient is inappropriate. She will mumble other times. PAST MEDICAL HISTORY: The patient with question of possible dementia. The patient with alcohol abuse in the past. Other than that, not much further information available. Unclear if patient had any history of seizures or not. The patient is generally weak. Here, the patient with some abnormal movements around the face and neck area. MEDICATIONS: As per reconciliation. Here, the patient is on lorazepam and thiamine. REVIEW OF SYSTEMS: Limited. The patient has no seizures here. Confused. Abnormal movements of the face. PHYSICAL EXAMINATION: VITAL SIGNS: Temperature 98.5, blood pressure 117/79, pulse is around about 80. NECK: Supple. No bruits. HEART: Sounds S1 and S2. LUNGS: Clear. NEUROLOGIC: The patient is lying in bed. She is awake and alert. She gives me her name. She tells me her age. She does not know what day it is or what month. She knew the year. She is able to name simple objects. CRANIAL: Pupils react to light. I do not see any nystagmus. There are some abnormal movements of the face, almost like dyskinesia. MOTOR: She will lift both arms up. The patient will lift both legs up. REFLEXES: About 2+ upper extremity. Knees are about 2+ to 3, ankles 1+. Gait not tested. INVESTIGATIONS: CT scan of the head normal. LABORATORY DATA: WBC is 5.2, hemoglobin 10.9 and platelets okay. Sodium 138, bilirubin 2.4 with normal LFTs. Ammonia level 38. TSH is 3.97. IMPRESSION: 1. Encephalopathy. 2. History of previous alcohol abuse, unclear whether this may be residual day of with alcohol-related dementia. The patient getting B1 vitamin at the moment. 3. Unwitnessed seizure. No seizures while here. Rule out any inflammatory process. PLAN: To go ahead and do MRI of the brain. MANAGEMENT: We will go ahead and do lab studies. Continue present treatment. JOB# [id number]
[2018-04-27] MEDS: D5-0.45NS 1,000 ML IV SCH ×2 (00:38→13:00)
--- NOTE | 2018-04-27 09:34 | Progress Notes ---
DATE: 04/27/2018 SUBJECTIVE: The patient seen and examined. The patient is lying in the bed. The patient opens his eye, but not following any command. The patient is seen by neurologist, consult and input is greatly appreciated. OBJECTIVE: VITAL SIGNS: Temperature 96.7, pulse 71, respiratory 18, blood pressure 147/75. HEENT: No facial asymmetry. NECK: Supple, no JVD. HEART: Regular. CHEST: Lung equal in expansion, no expiratory wheezing. ABDOMEN: Soft. EXTREMITIES: No edema. AVAILABLE DIAGNOSTIC DATA: None for my review today. CLINICAL IMPRESSION: 1. Microcytic anemia. 2. Alcohol dependence. 3. No signs of alcohol withdrawal. 4. Encephalopathy. 5. Degenerative joint disease. 6. Decline in self-care and mobility. PLAN: Neurology has requested MRI. We will wait for the MRI to be completed. The patient will have continuation of same treatment plan as prescribed along with nutritional support. PT, OT will be added. We will have social service involve in this patient to have a discharge plan to home safely in safe environment. Care plan reviewed. JOB# [id number]
[2018-04-27] MEDS: Multivitamin w/ Minerals Tab PO SCH (10:10)
[2018-04-27] MEDS: Pantoprazole 40 mg EC Tab PO SCH (10:10)
[2018-04-27] MEDS: Thiamine 100 mg/mL 2mL Vial IM SCH (10:10)
[2018-04-28] MEDS: Thiamine 100 mg/mL 2mL Vial IM SCH (09:07)
[2018-04-28] MEDS: Multivitamin w/ Minerals Tab PO SCH (09:08)
[2018-04-28] MEDS: Pantoprazole 40 mg EC Tab PO SCH (09:08)
--- NOTE | 2018-04-28 10:17 | Diagnostic Imaging Report ---
CT scan abdomen and pelvis without intravenous contrast HISTORY: Cirrhosis, abnormal liver function test Total DLP equals 363 CTDI equals 7.3 Axial sections were obtained from the xiphoid process down to the pubic symphysis. The exam demonstrates enlargement of the left lobe of the liver that extends across the abdomen. There is a decrease in overall hepatic parenchymal density. The findings may be associated with fatty infiltration and should be correlated with liver function tests. No focal lesions. The spleen appears normal. Questionable intraluminal hyperdensities seen in the gallbladder. Cholelithiasis cannot be excluded. Sonography would provide additional assessment if needed. No focal abnormality seen in the region of pancreas. No focal renal lesions. The exam of the pelvis demonstrates preservation of normal fat planes. No abnormal soft tissue masses or abnormal fluid collections. There is a mildly distended stool-filled rectum. No bowel dilatation. IMPRESSION: 1. Findings suggesting hepatic fatty infiltration. The changes should be correlated with liver function tests. 2. Question cholelithiasis. Sonography would provide additional assessment if needed
--- NOTE | 2018-04-28 16:14 | Progress Notes ---
DATE: 04/28/2018 MEDICAL PROGRESS NOTE SUBJECTIVE: The patient seen and examined. The patient is lying in the bed. The patient is still having period of confusion, not eating properly independently. She needs assistance to feed the person, she needs 1-person assistance to feed her as well. The patient does not comprehend properly. Her previous health baseline status is unknown according to the nursing staff. She was living with significant other at home. The patient does have a chronic alcohol use. PHYSICAL EXAMINATION: VITAL SIGNS: Temperature 96.8, pulse is 77, respiratory rate is 18, and blood pressure 126/63. HEENT: No facial asymmetry. NECK: Supple, no JVD. HEART: Regular. CHEST AND LUNGS: Equal in expansion, no expiratory wheezing. ABDOMEN: Soft. EXTREMITIES: No edema. NEUROLOGIC: Alert, awake, trying to follow commands, does not follow comprehensive complex commands. AVAILABLE DATA: None for my review. CLINICAL IMPRESSION: 1. 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 2. Macrocytic anemia. 3. Decline in self-care and mobility. 4. Hyperbilirubinemia with elevated SGOT with normal SGPT, suspect secondary to alcoholic liver disease. PLAN: The patient needs dispositions to safe environment once the patient is cleared by the beauty sales consultant. The patient will be given feeding assistance along with hydration. I will also repeat CT scan of abdomen and pelvis in order to assess the patient's liver status as well and baseline followup lab as well. Care plan has been reviewed and discussed with staff. JOB# [id number]
[2018-04-28] MEDS: D5-0.45NS 1,000 ML IV SCH (16:24)
--- NOTE | 2018-04-29 08:41 | Diagnostic Imaging Report ---
Left hip 2 views Indication: pain Comparison: CT abdomen and pelvis on 04/02/2018 Findings: Minimal degenerative changes of left hip joint is noted. No evidence of acute fracture or dislocation. Degenerative changes of the lumbar spine are noted with spinal scoliosis. Impression: No evidence of an acute fracture. Minimal degenerative change of the left hip joint Degenerative changes of the lumbar spine with spinal scoliosis. In the setting of trauma, if clinical symptoms persist and there is continued concern for an occult fracture, follow up exams in 5-7 days is suggested.
[2018-04-29] MEDS: D5-0.45NS 1,000 ML IV SCH (08:57)
[2018-04-29] MEDS: Thiamine 100 mg/mL 2mL Vial IM SCH (08:57)
[2018-04-29] MEDS: Multivitamin w/ Minerals Tab PO SCH (08:58)
[2018-04-29] MEDS: Pantoprazole 40 mg EC Tab PO SCH (08:58)
[2018-04-29] MEDS: Hydrocodone/APAP 5mg/325mg Tab PO PRN (09:11)
--- NOTE | 2018-04-29 21:11 | Progress Notes ---
DATE: PATIENT'S IDENTIFICATION: The patient is a 52-year-old female. SUBJECTIVE: The patient seen and examined. The patient is not following any commands. The patient remained bedbound. The patient has a poor p.o. intake. OBJECTIVE: On exam, VITAL SIGNS: Temperature 98.2, pulse 75, respiratory rate 18, blood pressure 110/64. HEENT: No facial asymmetry. NECK: Supple. No JVD. HEART: Regular. CHEST AND LUNGS: Equal in expansion, no expiratory wheezing. ABDOMEN: Soft. EXTREMITIES: No edema. CLINICAL IMPRESSION: Persistent altered mental status within normal. CT scan of the head with and without contrast. The patient has history of chronic alcoholism. Etiology of her altered mental status needs to determine. So far, cultures are negative and the patient is not coming to her baseline. The patient needs further evaluation in the form of a lumbar puncture and so forth. PLAN: The patient needs to be transferred to another hospital where the patient can have a lumbar puncture and further workup, which has been discussed with geriatric case manager as well. Meanwhile, we will continue supportive care as well as nutritional support and general nursing care. JOB# [id number]
[2018-04-30] MEDS: D5-0.45NS 1,000 ML IV SCH (01:20)
[2018-04-30] MEDS: Pantoprazole 40 mg EC Tab PO SCH (09:10)
[2018-04-30] MEDS: Hydrocodone/APAP 5mg/325mg Tab PO PRN (09:10)
[2018-04-30] MEDS: Thiamine 100 mg/mL 2mL Vial IM SCH (09:10)
[2018-04-30] MEDS: Multivitamin w/ Minerals Tab PO SCH (09:10)
--- NOTE | 2018-04-30 21:22 | Progress Notes ---
DATE: 04/30/2018 SUBJECTIVE: The patient seen and examined. The patient is very much alert, awake, and oriented. Now she knows what happened to her. She does not remember. She lives with her boyfriend for many years and she has been drinking alcohol for many years. According to her prior to coming to the hospital the patient had last drink approximately 3-4 days before. PHYSICAL EXAMINATION: VITAL SIGNS: Temperature 98.4, pulse 81, respiratory 18, blood pressure 113/79. HEENT: Poor dentition. NECK: Supple, no JVD. HEART: Regular. CHEST AND LUNGS: Equal in expansion, no expiratory wheezing. ABDOMEN: Soft. EXTREMITIES: No edema. IMPRESSION: 1. Improved mental status. 2. Most likely alcohol withdrawal. 3. Alcohol dependence. 4. Gastritis. 5. Microcytic anemia. PLAN: Suggested at this time to discontinue restraints, start feeding the patient. Increase activity and is stable to discharge the patient to home. JOB# [id number]
[2018-05-01] MEDS: D5-0.45NS 1,000 ML IV SCH ×2 (00:41→14:44)
[2018-05-01] MEDS: Pantoprazole 40 mg EC Tab PO SCH (09:10)
[2018-05-01] MEDS: Multivitamin w/ Minerals Tab PO SCH (09:10)
[2018-05-01] MEDS: Thiamine 100 mg/mL 2mL Vial IM SCH (09:11)
--- NOTE | 2018-05-01 19:55 | General Progress Note ---
Subjective - Review of Systems Service Date: 05/01/18 Subjective: Patient seen and examined chart reviewed no new concern noted Objective - Results Result Diagrams: 04/26/18 04:50 04/26/18 04:50 Recent Labs: Laboratory Last Values WBC 5.6 Th/cmm (4.8-10.8) 04/26/18 04:50 RBC 2.87 Mil/cmm (3.80-5.10) L 04/26/18 04:50 Hgb 10.6 gm/dL (12-16) L 04/26/18 04:50 Hct 30.5 % (41.0-60) L 04/26/18 04:50 MCV 106.4 fl (81-100) H 04/26/18 04:50 MCH 36.8 pg (27.0-31.0) H 04/26/18 04:50 MCHC Differential 34.6 pg (28.0-36.0) 04/26/18 04:50 RDW 12.6 % (11.5-20.0) 04/26/18 04:50 Plt Count 200 Th/cmm (150-400) 04/26/18 04:50 MPV 9.7 fl 04/26/18 04:50 Neutrophils % 44.4 % (40.0-80.0) 04/26/18 04:50 Lymphocytes % 36.5 % (20.0-50.0) 04/26/18 04:50 Monocytes % 11.2 % (2.0-10.0) H 04/26/18 04:50 Eosinophils % 7.1 % (0.0-5.0) H 04/26/18 04:50 Basophils % 0.8 % (0.0-2.0) 04/26/18 04:50 PT 12.3 SECONDS (9.5-11.5) H 04/23/18 16:13 INR 1.19 (0.5-1.4) 04/23/18 16:13 PTT (Actin FS) 27.2 SECONDS (26.0-38.0) 04/23/18 16:13 Sodium 138 mEq/L (136-145) 04/26/18 04:50 Potassium 3.7 mEq/L (3.5-5.1) 04/26/18 04:50 Chloride 111 mEq/L (98-107) H 04/26/18 04:50 Carbon Dioxide 17.3 mEq/L (21.0-31.0) L 04/26/18 04:50 Anion Gap 13.4 (7.0-16.0) 04/26/18 04:50 BUN 3 mg/dL (7-25) L 04/26/18 04:50 Creatinine 0.6 mg/dL (0.6-1.2) 04/26/18 04:50 Est GFR ( Amer) > 60.0 ml/min (>90) 04/26/18 04:50 Est GFR (Non-Af Amer) > 60.0 ml/min 04/26/18 04:50 BUN/Creatinine Ratio 5.0 04/26/18 04:50 Glucose 94 mg/dL (70-105) 04/26/18 04:50 POC Glucose 68 MG/DL (70-105) L 04/23/18 15:43 Calcium 8.3 mg/dL (8.6-10.3) L 04/26/18 04:50 Magnesium 2.0 mg/dL (1.9-2.7) 04/25/18 05:48 Total Bilirubin 1.7 mg/dL (0.3-1.0) H 04/26/18 04:50 AST 47 U/L (13-39) H 04/26/18 04:50 ALT 22 U/L (7-52) 04/26/18 04:50 Alkaline Phosphatase 77 U/L (34-104) 04/26/18 04:50 Ammonia 48 umol/L (16-53) 04/25/18 05:48 Creatine Kinase 101 U/L (30-223) 04/24/18 14:54 Troponin I 0.06 ng/mL (0.01-0.05) H D 04/25/18 05:48 B-Natriuretic Peptide 78.1 pg/mL (5.0-100.0) 04/26/18 04:50 Total Protein 5.4 gm/dL (6.0-8.3) L 04/26/18 04:50 Albumin 2.4 gm/dL (3.7-5.3) L 04/26/18 04:50 Globulin 3.0 gm/dL 04/26/18 04:50 Albumin/Globulin Ratio 0.8 (1.0-1.8) L 04/26/18 04:50 Triglycerides 75 mg/dL (<150) 04/25/18 05:48 Cholesterol 126 mg/dL (<200) 04/25/18 05:48 LDL Cholesterol Direct 79 mg/dL (75-193) 04/25/18 05:48 HDL Cholesterol 36 mg/dL (23-92) 04/25/18 05:48 Amylase 31 U/L (29-103) 04/23/18 16:13 Lipase 9 U/L (11-82) L 04/23/18 16:13 Vitamin B12 1530 pg/mL (232-1245) H 04/25/18 05:48 Folic Acid 7.7 ng/mL (>3.0) 04/24/18 14:54 TSH 3.97 uIU/ml (0.34-5.60) 04/23/18 16:13 Serum , Qual NEGATIVE (NEGATIVE) 04/23/18 16:13 Urine Source MIDSTREAM 04/23/18 15:30 Urine Color YELLOW 04/23/18 15:30 Urine Clarity HAZY (CLEAR) 04/23/18 15:30 Urine pH 6.0 (4.6 - 8.0) 04/23/18 15:30 Ur Specific [place] 1.020 (1.005-1.030) 04/23/18 15:30 Urine Protein NEGATIVE mg/dL (NEGATIVE) 04/23/18 15:30 Urine Glucose (UA) 100 mg/dL (NEGATIVE) H 04/23/18 15:30 Urine Ketones NEGATIVE mg/dL (NEGATIVE) 04/23/18 15:30 Urine Blood NEGATIVE (NEGATIVE) 04/23/18 15:30 Urine Nitrate NEGATIVE (NEGATIVE) 04/23/18 15:30 Urine Bilirubin SMALL (NEGATIVE) H 04/23/18 15:30 Urine Urobilinogen 1.0 E.U./dL (0.2 - 1.0) 04/23/18 15:30 Ur Leukocyte Esterase SMALL (NEGATIVE) H 04/23/18 15:30 Urine RBC 0-2 /hpf (0-5) 04/23/18 15:30 Urine WBC 6-10 /hpf (0-5) H 04/23/18 15:30 Ur Epithelial Cells MODERATE /lpf (FEW) 04/23/18 15:30 Urine Bacteria 1+ /hpf (NONE SEEN) H 04/23/18 15:30 Urine Yeast FEW /hpf (NONE SEEN) H 04/23/18 15:30 Urine Opiates Screen NEGATIVE (NEGATIVE) 04/23/18 15:30 Urine Methadone Screen NEGATIVE (NEGATIVE) 04/23/18 15:30 Ur Barbiturates Screen NEGATIVE (NEGATIVE) 04/23/18 15:30 Ur Tricyclics Screen NEGATIVE (NEGATIVE) 04/23/18 15:30 Ur Phencyclidine Scrn NEGATIVE (NEGATIVE) 04/23/18 15:30 Amphetamines Screen NEGATIVE (NEGATIVE) 04/23/18 15:30 U Methamphetamines Scrn NEGATIVE (NEGATIVE) 04/23/18 15:30 U Benzodiazepines Scrn NEGATIVE (NEGATIVE) 04/23/18 15:30 U Cocaine Metab Screen NEGATIVE (NEGATIVE) 04/23/18 15:30 U Cannabinoids Screen NEGATIVE (NEGATIVE) 04/23/18 15:30 Ethyl Alcohol < 10 mg/dL (0-10) 04/23/18 16:13 Hepatitis A IgM Ab Negative (Negative) 04/23/18 18:18 Hep Bs Antigen Negative (Negative) 04/23/18 18:18 Hep B Core IgM Ab Negative (Negative) 04/23/18 18:18 Hepatitis C Antibody <0.1 s/co ratio (0.0-0.9) 04/23/18 18:18 - Physical Exam Vitals and I&O: Vital Signs Temp 97.3 F 05/01/18 15:48 Pulse 79 05/01/18 15:48 Resp 18 05/01/18 15:48 BP 126/79 05/01/18 15:48 Pulse Ox 100 05/01/18 15:48 Intake & Output 05/01/18 05/01/18 05/02/18 06:59 18:59 06:59 Intake Total 1450 Balance 1450 Weight (lbs) 52.163 kg 52.163 kg Intake: Intake, IV Amount 1000 D5-0.45NS 1,000 ml @ 75 1000 mls/hr IV [id number] [facility] Rx #:[id number] Oral 450 Other: # Voids 2 5 # Bowel Movements 0 Weight Source Bedscale Bedscale Active Medications: Current Medications Acetaminophen/Hydrocodone Bitart ([place] 5mg/325mg) 1 tab PO Q6H PRN PRN Reason: Moderate Pain (LEVEL 4-6) Stop: 06/28/18 00:41 Last Admin: 04/30/18 09:10 Dose: 1 tab Dextrose/Sodium Chloride (D5-0.45ns) 1,000 mls @ 75 mls/hr IV .[id number] DOLORES Stop: 06/23/18 13:39 Last Admin: 05/01/18 14:44 Dose: 75 mls/hr Lorazepam (Ativan) 2 mg IVP Q4H PRN; Protocol PRN Reason: WITHDRAWL Stop: 06/23/18 14:52 Last Admin: 04/27/18 17:21 Dose: 2 mg Pantoprazole Sodium (Protonix) 40 mg PO DAILY DOLORES Stop: 06/24/18 09:14 Last Admin: 05/01/18 09:10 Dose: 40 mg Thiamine HCl (Vitamin B1) 100 mg IM DAILY DOLORES Stop: 06/23/18 15:59 Last Admin: 05/01/18 09:11 Dose: 100 mg Cardiovascular: Regular rate Lungs: Clear to auscultation - Procedures Procedures: Procedures Procedure Code Date APPLICATION OF SPLINT 93.54 10/29/09 APPLY FOREARM SPLINT 46355 10/29/09 INJECT/INFUSE NEC 99.29 02/24/14 THER/PROPH/DIAG INJ SC/IM 20410 10/29/09 Assessment/Plan - Assessment Assessment: Alcoholic liver disease AMS most likley related to underlying alcoholism Macrocytic Anemia Asymptomatic bacteuria - Plan Plan: Supportive care Monitor vitals Follow up labs Plan of care discussed with nursing staff Nutritional Asmnt/Malnutr-PDOC - Dietary Evaluation Malnutrition Findings (Please click <Entered> for more info): Nutritional Asmnt/Malnutrition Start: 04/25/18 16: 29 Text: Status: Complete Freq: Protocol: Document 04/25/18 16:29 FARHAN (Rec: 04/25/18 16:45 FARHAN [id number]) Nutritional Asmnt/Malnutrition Patient General Information Nutritional Screening High Risk Diagnosis elevated trop, aloc Pertinent Medical Hx/Surgical Hx alcohol abuse, arthritis Subjective Information Pt was seen laying in bed, confused/disoriented, at time of visit. Muscle wasting visible to arms. Pt stated she likes sandwiches, but unable to clearly communicate other needs to dietitian, not able to obtain nutrition hx. Per EMR, PO intake 75% of dinner last night. Spoke with RN, RN stated pt was very confused, did not have breakfast this morning. Diet order changed to regular at lunch today. Current Diet Order/ Nutrition Support regular Pertinent Medications D5-0.45ns, protonix, vitamin B1 Pertinent Labs 04/23: K 2.5-3.0, glucose 321, Ca 7.3-7.6, albumin 2.4 04/25: K 3.1, glucose 100, Ca 8 .2, albumin 2.4 Nutritional Hx/Data Height 1.57 m Height (Calculated Centimeters) 157.5 Current Weight (lbs) 50.802 kg Weight (Calculated Kilograms) 50.8 Weight (Calculated Grams) 91650.3 [place] Body Weight 110 Body Mass Index (BMI) 20.5 Weight Status Approriate GI Symptoms GI Symptoms None Last BM none noted Difficult in: None Skin Integrity/Comment: discoloration of sacral and BUE Current %PO Fair (50-74%) Estimated Nutritional Goals BEE in Kcals: Using Current wt Calories/Kcals/Kg 25-30 Kcals Calculated 2947-3772 Protein: Using Current wt Protein g/k.8-1 Protein Calculated 41-51 g Fluid: ml 7260-3112 (1 ml/kcal) Nutritional Problem 1. Problem Problem Altered nutriton-related labs Etiology electrolytes imbalance, alcohol abuse Signs/Symptoms: K 3.1, Ca 8.2, albumin 2.4 Malnutrition Alert Muscle Mass (Non-Severe) Mild Depletion Is there a minimum of two criteria No selected? Query Text:Check all the applicable criteria. A minimum of two criteria are recommended for diagnosis of either severe or non-severe malnutrition. Malnutrition Related to Morbid Obesity Malnutrition related to morbid obesity No Intervention/Recommendation Comments 1. Continue with regular diet as ordered. Monitor tolerence. MD to replace electrolytes. 2. Monitor PO intake, wt, labs and skin integrity 3. F/U as moderate risk in 3-5 days, 04/28-04/30, PO check Expected Outcomes/Goals Expected Outcomes/Goals 1. PO intake to meet at least 75% of nutritional needs. 2. Wt stability, skin to remain intact, labs to approach WNL.
[2018-05-02] MEDS: D5-0.45NS 1,000 ML IV SCH ×2 (04:32→16:23)
[2018-05-02 04:59] LABS: HEMOGLOBIN 9.7 gm/dL (12-16); MEAN CORPUSCULAR HEMOGLOBIN 36.9 pg (27.0-31.0); MEAN CORPUSCULAR HGB CONC 34.7 pg (28.0-36.0); MEAN PLATELET VOLUME 8.5 fl; PLATELET COUNT 309 Th/cmm (150-400); RED BLOOD COUNT 2.63 Mil/cmm (3.80-5.10); RED CELL DISTRIBUTION WIDTH 12.1 % (11.5-20.0); WHITE BLOOD COUNT 5.2 Th/cmm (4.8-10.8)
[2018-05-02 05:14] LABS: MEAN CELL VOLUME 106.6 fl (81-100)
[2018-05-02 05:50] LABS: ANION GAP 9.8 (7.0-16.0); BUN - UREA NITROGEN 6 mg/dL (7-25); CALCIUM SERUM 8.1 mg/dL (8.6-10.3); CHLORIDE 113 mEq/L (98-107); CREATININE - SERUM 0.6 mg/dL (0.6-1.2); GFR AFRICAN-AMERICAN > 60.0 ml/min (>90); GFR NON AFRICAN-AMERICAN > 60.0 ml/min; GLUCOSE 92 mg/dL (70-105); SODIUM SERUM 140 mEq/L (136-145)
[2018-05-02 06:00] LABS: POTASSIUM SERUM 2.8 mEq/L (3.5-5.1)
[2018-05-02 06:48] LABS: BAND NEUTROPHILE 0 % (0-10); LYMPHOCYTE 44 % (20-50); NEUTROPHILS 46 % (40-80)
[2018-05-02 06:49] LABS: EOSINOPHIL 2 % (0-5); MONOCYTE 8 % (2-10)
[2018-05-02 06:51] LABS: PLATELET ESTIMATE ADEQUATE (NORMAL)
[2018-05-02] MEDS: Multivitamin w/ Minerals Tab PO SCH (08:43)
[2018-05-02] MEDS: Pantoprazole 40 mg EC Tab PO SCH (08:43)
[2018-05-02] MEDS ORDERED: KCL 20mEq/100mL Premix 20 MEQ/100 ML PIGGYBACK IV ONE (09:00)
[2018-05-02] MEDS ORDERED: Potassium Chloride 20 mEq ER Tab PO ONE (09:00)
[2018-05-02] MEDS: Thiamine 100 mg/mL 2mL Vial IM SCH (09:00)
[2018-05-02 18:20] LABS: MAGNESIUM 1.4 mg/dL (1.9-2.7); POTASSIUM SERUM 3.5 mEq/L (3.5-5.1)
[2018-05-03] MEDS ORDERED: Magnesium Citrate 1.75 GM/300 mL Bottle PO ONE
[2018-05-03] MEDS ORDERED: Mag Sulfate 2gm/50mL Premix 2 GM/50 ML BAG IV ONE
[2018-05-03 05:31] LABS: ANION GAP 9.6 (7.0-16.0); CHLORIDE 114 mEq/L (98-107); GLUCOSE 105 mg/dL (70-105); POTASSIUM SERUM 3.6 mEq/L (3.5-5.1); SODIUM SERUM 138 mEq/L (136-145)
[2018-05-03 05:32] LABS: BUN - UREA NITROGEN 4 mg/dL (7-25); CALCIUM SERUM 8.4 mg/dL (8.6-10.3); CREATININE - SERUM 0.5 mg/dL (0.6-1.2); GFR AFRICAN-AMERICAN > 60.0 ml/min (>90); GFR NON AFRICAN-AMERICAN > 60.0 ml/min; MAGNESIUM 2.3 mg/dL (1.9-2.7)
[2018-05-03] MEDS: Thiamine 100 mg/mL 2mL Vial IM SCH (08:20)
[2018-05-03] MEDS: Multivitamin w/ Minerals Tab PO SCH (08:21)
[2018-05-03] MEDS: Pantoprazole 40 mg EC Tab PO SCH (08:21)
[2018-05-03] MEDS: D5-0.45NS 1,000 ML IV SCH (14:31)
--- NOTE | 2018-05-03 16:09 | Progress Notes ---
DATE: IDENTIFICATION: A 52-year-old female. SUBJECTIVE: The patient seen and examined. The patient is lying in the bed. The patient is alert, awake and oriented. The patient has some degree of confusion on and off, potassium reported 2.8. The patient was able to ambulate. PHYSICAL EXAMINATION: VITAL SIGNS: Temperature 98.1, pulse 75, respiratory rate is 18, blood pressure 120/78. HEENT: No facial asymmetry. NECK: Supple, no JVD. HEART: Regular. CHEST AND LUNGS: Equal in expansion, no expiratory wheezing. ABDOMEN: Soft. No guarding or rigidity. Bowel sounds present. No palpable mass. EXTREMITIES: No edema. CLINICAL IMPRESSION: 1. Hypokalemia. 2. Alcohol abuse. 3. Encephalopathy, significantly improved. 4. Gastritis. 5. Macrocytic anemia. 6. Debility. PLAN: 1. Replace potassium and magnesium. 2. Increase activity. 3. Discharge plan to home. 4. Care plan reviewed and discussed. JOB# [id number]
[2018-05-04] MEDS: D5-0.45NS 1,000 ML IV SCH ×2 (03:39→18:25)
--- NOTE | 2018-05-04 06:39 | Progress Notes ---
DATE: IDENTIFICATION: A 52-year-old female. SUBJECTIVE: The patient seen and examined. The patient is extremely anxious and agitated. The patient's blood pressure went up as well. The patient's mental status is declining as compared to yesterday. The patient also required some IV Ativan as well. The patient currently does not provide any meaningful history. PHYSICAL EXAMINATION: VITAL SIGNS: Temperature 97.1, pulse 84, respiratory rate 18, and blood pressure 189/99. HEENT: No facial asymmetry. NECK: Supple. HEART: Regular. LUNGS: Clear. ABDOMEN: Soft. EXTREMITIES: No edema. CLINICAL IMPRESSION: 1. Waxing and waning mental status. 2. Underlying anxiety and depression. 3. Chronic alcoholism. 4. Status post alcohol withdrawal. 5. Electrolyte imbalance. 6. Decline in self-care and mobility. 7. Social issue. PLAN: In the view of her waxing and waning mental status, I do suggest the patient to go to [facility] for further care. The patient will require possible lumbar puncture as well. Meanwhile, continue current treatment plan. Care plan reviewed and discussed with RN. JOB# [id number]
[2018-05-04] MEDS: Thiamine 100 mg/mL 2mL Vial IM SCH (08:19)
[2018-05-04] MEDS: Pantoprazole 40 mg EC Tab PO SCH (08:19)
[2018-05-04] MEDS: Multivitamin w/ Minerals Tab PO SCH (08:19)
--- NOTE | 2018-05-05 03:29 | Progress Notes ---
DATE: IDENTIFICATION: A 52-year-old female. SUBJECTIVE: The patient seen and examined. The patient is alert, awake, and oriented now. She wants to go home. The patient stated that she has a repair tech at home who will take care of her. The patient currently denies any chest pain, shortness of breath, palpitation, or dizziness. OBJECTIVE: VITAL SIGNS: Temperature at this time 98, pulse is 89, respiratory rate 18, and blood pressure 100/70. HEENT: No facial asymmetry. NECK: Supple, no JVD. HEART: Regular. CHEST: Lung equal in expansion, no expiratory wheezing. ABDOMEN: Soft. EXTREMITIES: No edema. CLINICAL IMPRESSION: 1. Altered mental status, improving. 2. Underlying depression. 3. Microcytic anemia. 4. Degenerative joint disease. 5. Debility. 6. Declining self-care and mobility. 7. Social situation. PLAN: Discharge planning to home versus prison. The patient does not want to do any further procedure considering the patient is better. At this time, we will make a plan to send her home with home health and if it is not safe, we will place the patient is a prison. Care plan has been reviewed and discussed. JOB# [id number]
[2018-05-05 05:29] LABS: % BASOPHILS 0.5 % (0.0-2.0); % EOSINOPHILS 6.7 % (0.0-5.0); % MONOCYTES 9.7 % (2.0-10.0); % NEUTROPHILS 49.1 % (40.0-80.0); EOSINOPHILE ABSOLUTE 0.4 Th/cmm (0.1-0.4); HEMATOCRIT 27.5 % (41.0-60); HEMOGLOBIN 9.5 gm/dL (12-16); LYMPHOCYTE ABSOLUTE 2.1 Th/cmm (1.5-3.0); MEAN CORPUSCULAR HEMOGLOBIN 36.2 pg (27.0-31.0); MEAN CORPUSCULAR HGB CONC 34.4 pg (28.0-36.0); MEAN PLATELET VOLUME 7.6 fl; MONOCYTE ABSOLUTE 0.6 Th/cmm (0.3-1.0); NEUTROPHILE ABSOLUTE 3.2 Th/cmm (1.8-8.0); PLATELET COUNT 322 Th/cmm (150-400); RED BLOOD COUNT 2.61 Mil/cmm (3.80-5.10); RED CELL DISTRIBUTION WIDTH 12.1 % (11.5-20.0); WHITE BLOOD COUNT 6.3 Th/cmm (4.8-10.8)
[2018-05-05 05:30] LABS: MEAN CELL VOLUME 105.4 fl (81-100)
[2018-05-05 05:44] LABS: ALB/GLOB RATIO 0.9 (1.0-1.8); ALBUMIN 2.3 gm/dL (3.7-5.3); ALKALINE PHOSPHATASE 66 U/L (34-104); ANION GAP 8.4 (7.0-16.0); BILIRUBIN,TOTAL 0.9 mg/dL (0.3-1.0); BUN - UREA NITROGEN 9 mg/dL (7-25); CALCIUM SERUM 8.7 mg/dL (8.6-10.3); CARBON DIOXIDE 21.3 mEq/L (21.0-31.0); CHLORIDE 112 mEq/L (98-107); CREATININE - SERUM 0.7 mg/dL (0.6-1.2); GFR AFRICAN-AMERICAN > 60.0 ml/min (>90); GFR NON AFRICAN-AMERICAN > 60.0 ml/min; GLUCOSE 102 mg/dL (70-105); POTASSIUM SERUM 3.7 mEq/L (3.5-5.1); SGOT 25 U/L (13-39); SGPT/ALT 11 U/L (7-52); SODIUM SERUM 138 mEq/L (136-145)
[2018-05-05] MEDS: Thiamine 100 mg/mL 2mL Vial IM SCH (09:28)
[2018-05-05] MEDS: Pantoprazole 40 mg EC Tab PO SCH (09:28)
[2018-05-05] MEDS: Multivitamin w/ Minerals Tab PO SCH (09:28)
[2018-05-05] MEDS: D5-0.45NS 1,000 ML IV SCH (09:34)
--- NOTE | 2018-05-05 17:28 | Progress Notes ---
DATE: IDENTIFICATION: A 52-year-old female. SUBJECTIVE: The patient seen and examined. The patient is alert, awake, oriented x3. No new event. The patient is lying in the bed, has adequate p.o. intake. The patient is still not walking, very unsteady. OBJECTIVE: VITAL SIGNS: Temperature 99.2, pulse 78, respiratory rate 18, and blood pressure 108/74. HEENT: No facial asymmetry. NECK: Supple, no JVD. HEART: Regular. CHEST AND LUNGS: Equal in expansion, no expiratory wheezing. ABDOMEN: Soft. EXTREMITIES: No edema. NEUROLOGIC: Decreased power throughout the upper and lower extremity. AVAILABLE DIAGNOSTIC DATA: White count of 6.3, hemoglobin 9.5, MCV of 105, and platelets are normal. Potassium is normal. BUN and creatinine is normal. Albumin of 2.3. CLINICAL IMPRESSION: 1. Altered mental status, resolved, suspect secondary to alcohol withdrawal. 2. Microcytic anemia. 3. Generalized debility. 4. Electrolyte imbalance, resolved. 5. Alcohol dependence history. 6. Gastritis. PLAN: Transfer this patient to prison for rehabilitation. Discontinue IV fluid for now. Continue p.o. Protonix, multivitamin, and thiamine. JOB# [id number]
--- NOTE | 2018-05-12 09:37 | Discharge Summary ---
DATE OF DISCHARGE: 05/05/2018 DISPOSITION: To [facility]. PRINCIPAL DIAGNOSES: 1. Altered mental status secondary to alcohol withdrawal. 2. Microcytic anemia. 3. Generalized debility. 4. Electrolyte imbalance. 5. Alcohol dependence. 6. Gastritis. 7. Decline in self-care and mobility. 8. Cirrhosis of liver. BRIEF STATEMENT FOR THE REASON FOR ADMISSION: A 52-year-old female presented to Emergency Room by 911 after the patient was noted to have altered mental status associated with abnormal liver function test and UTI and low potassium. Please refer to my H and P for further information. HOSPITAL COURSE: The patient was admitted to telemetry unit. The patient was seen by freight forwarder along with neurologist as well. The patient did have a waxing and waning mental status, which required extensive evaluation including CT scan of the abdomen and pelvis. CT scan of the head as well. The patient was noted to have significant hypokalemia, which was also corrected as well. The patient did have some improvement after correcting the electrolytes as well as hydration. The patient was able to take p.o. as well. I did have a discussion with the patient about discharge plan. The patient wanted to go home, but the patient's home situation was very different. She was living with her older boyfriend and she needed to have rehabilitation until the patient becomes more stable. Decision was made that the patient can be discharged to [facility] until the patient is more independent. The patient was accepted to [facility] and the patient was discharge where the patient will be followed by ANIKA RAWLS. JOB# [id number]
== END 2018-05-05 21:00 | DRG 280 ==
LOC: ER 15:29 → TELE 20:39 → MERGE 20:39 → MSI 04-26 11:15
PROVIDERS: ADMIT Internal Medicine; ATTEND Internal Medicine
DX: K70.9 Alcoholic liver disease, unspecified (principal); G93.40 Encephalopathy, unspecified; E43 Unspecified severe protein-calorie malnutrition; E87.8 Other disorders of electrolyte and fluid balance, not elsewhere classified; F10.20 Alcohol dependence, uncomplicated; D50.9 Iron deficiency anemia, unspecified; F10.239 Alcohol dependence with withdrawal, unspecified; F10.229 Alcohol dependence with intoxication, unspecified; R47.01 Aphasia; D75.89 Other specified diseases of blood and blood-forming organs; E87.6 Hypokalemia; N39.0 Urinary tract infection, site not specified; M19.90 Unspecified osteoarthritis, unspecified site; E80.6 Other disorders of bilirubin metabolism; K29.70 Gastritis, unspecified, without bleeding; F41.9 Anxiety disorder, unspecified; F32.9 Major depressive disorder, single episode, unspecified; Z68.20 Body mass index [BMI] 20.0-20.9, adult; Z72.89 Other problems related to lifestyle
CPT/HCPCS: 36415-UA; 70450-TC; 70460-TC; 71045-TC; 73501; 76705-TC; 80048-TC; 80053-TC; 80061-TC; 80074-90; 80307; 80320-TC; 81001-TC; 82140-TC; 82150-TC; 82550-TC; 82607-90; 82746-90; 82948-90; 83036-90; 83690-TC; 83735-TC; 83880-TC; 84132-TC; 84443-TC; 84484-TC; 84703-TC; 85007-TC; 85025-TC; 85610-TC; 85730-TC; 93005; 95816-TC; 96374; 96375; 97530; J0696; J2060; J3411; J3475; J3480; J7042; J7799; Q9967; X3904; X6598; Z7610

== ENCOUNTER 2019-01-05 21:08 | Emergency (ER) | payer MEDICAID ==
--- NOTE | 2019-01-05 21:46 | ED Physician Chart ---
ED Chief Complaint/HPI - Patient Information Date Seen:: 01/05/19 Time Seen:: 21:05 Chief Complaint:: pruritic rash and pain left ankle History of Present Illness:: She has had pruritus of the scalp, upper extremities and torso for last 2 weeks. For the last one week she has had a painful lesion of the medial aspect of the left ankle. No trauma. Itching is increased by taking a shower. Patient lives with her father who is visited about every 2 weeks by his girlfriend who normally lives in a [facility]. Allergies:: Allergies Allergy/AdvReac Type Severity Reaction Status Date / Time No Known Allergies Allergy Verified 01/05/19 21:14 Vitals:: Vital Signs - 8 hr 01/05/19 21:10 Temp 97.4 F HR 81 RR 18 BP 147/93 O2 Sat % 96 Historian:: Patient Review:: Nurse's Note Reviewed ED Review of Systems - Review of Systems General/Constitutional: No fever, No chills Skin: Rash Head: No headache Eyes: No loss of vision ENT: No earache Neck: No neck pain Cardio Vascular: No chest pain, No palpitations Pulmonary: No SOB GI: No nausea, No vomiting, No diarrhea G/U: No dysuria Musculoskeletal: Other (see history and physical) Endocrine: No polyuria Psychiatric: No prior psych history ED Past Medical History - Past Medical History Past Medical History: Asthma/COPD Social History: Non Smoker, Alcohol (social alcohol consumption) Surgical History: other (breast) tubal ligation) Psychiatricy History: None Family Medical History - Family Member Brother History Unknown: Yes Ethnicity: Living Status: Hx Family Cancer: Yes Mother History Unknown: Yes Ethnicity: Living Status: Still Living ED Physical Exam - Physical Examination General/Constitutional: Awake, Well-developed, well-nourished, Alert, No distress, GCS 15, Non-toxic appearing, Ambulatory Head: Atraumatic Eyes: Lids, conjuctiva normal, PERRL, EOMI Other Skin comments:: Maculopapular rash on torso and upper extremities with some crusts from scratching; no rash on face or neck; 3 cm long 1 mm wide abrasion lateral left ankle with slight surrounding erythema ENMT: External ears, nose nl, TM canals nl, Nasal exam nl, Lips, teeth, gums nl Neck: No nuchal rigidity Respiratory: Nl effort/Exclusion, Clear to Auscultation Cardio Vascular: RRR, No murmur, gallop, rubs, NL S1 S2 GI: No tenderness/rebounding/guarding : No CVA tenderness Extremities: Normal digits & nails Neuro/Psych: No focal deficits ED Assessment - Assessment General Assessment: Patient most likely has scabies which she probably contracted from her father's girlfriend who normally resides in a [facility]. She also has a slightly infected crusted abrasion of the medial aspect the left ankle. ED Septic Shock - . Is Septic Shock (SBP<90, OR Lactate>4 mmol\L) present?: No - <6hrs of presentation: Vital Signs: Vital Signs - 8 hr /01/18 21:10 Temp 97.4 F HR 81 RR 18 BP 147/93 O2 Sat % 96 ED Reassessment (Disposition) - Reassessment Reassessment Condition:: Unchanged - Diagnosis Diagnosis:: Scabies; infected abrasion left ankle - Aftercare/Follow up Instructions Aftercare/Follow-Up Instructions:: Refer to Discharge Instructions Medication Prescribed:: Elimite 60 g tube to apply per directions; Atarax 25 mg #20 to take 1 4 times a day; Keflex 500 mg 4 times a day for 1 week; patient requests pain medicine will be prescribed ibuprofen 400 mg #20 to take 1 3 times a day. - Patient Disposition Discharge/Transfer:: Home Condition at Disposition:: Stable, Unchanged
== END 2019-01-05 22:00 | disposition home or self-care (01) ==
LOC: ER 21:08
DX: S90.512A Abrasion, left ankle, initial encounter (principal); L08.9 Local infection of the skin and subcutaneous tissue, unspecified; B86 Scabies; J44.9 Chronic obstructive pulmonary disease, unspecified; X58.XXXA Exposure to other specified factors, initial encounter; Y93.89 Activity, other specified; Y92.89 Other specified places as the place of occurrence of the external cause; Y99.8 Other external cause status
CPT/HCPCS: Z7502

== ENCOUNTER 2019-01-19 00:02 | Emergency (ER) | payer MEDICAID ==
--- NOTE | 2019-01-19 00:37 | ED Physician Chart ---
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 bib ems from home because of her shaking but states that she some wine earlier today. Allergies:: Allergies Allergy/AdvReac Type Severity Reaction Status Date / Time No Known Allergies Allergy Verified 01/05/19 21:14 Vitals:: Vital Signs - 8 hr 01/19/19 00:05 Temp 97.2 F HR 85 RR 18 BP 108/71 O2 Sat % 99 Historian:: Patient Review:: Nurse's Note Reviewed ED Review of Systems - Review of Systems General/Constitutional: No fever, No chills, No weight loss, No weakness, No diaphoresis, No edema, No loss of appetite Skin: No skin lesions, No rash, No bruising Head: No headache, No light-headedness Eyes: No loss of vision, No pain, No diplopia ENT: No earache, No nasal drainage, No sore throat, No tinnitus Neck: No neck pain, No swelling, No thyromegaly, No stiffness, No mass noted Cardio Vascular: No chest pain, No palpitations, No PND, No orthopnea, No edema Pulmonary: No SOB, No cough, No sputum, No wheezing GI: No nausea, No vomiting, No diarrhea, No pain, No melena, No hematochezia, No constipation, No hematemesis G/U: No dysuria, No frequency, No hematuria Musculoskeletal: No bone or joint pain, No back pain, No muscle pain Endocrine: No polyuria, No polydipsia Psychiatric: Prior psych history, No depression, Anxiety, No suicidal ideation Hematopoietic: No bruising, No lymphadenopathy Allergic/Immuno: No urticaria, No angioedema Neurological: No syncope, No focal symptoms, No weakness, No paresthesia, No headache, No seizure, No dizziness, No confusion, No vertigo ED Past Medical History - Past Medical History Obtainable: Yes Past Medical History: Other (alcoholic behavior, withdrawal and anxiety reactions) Family Medical History - Family Member Brother History Unknown: Yes Ethnicity: Living Status: Hx Family Cancer: Yes Mother History Unknown: Yes Ethnicity: Living Status: Still Living ED Physical Exam - Physical Examination General/Constitutional: Awake, Well-developed, well-nourished, Alert, No distress, GCS 15, Non-toxic appearing, Ambulatory Head: Atraumatic Eyes: Lids, conjuctiva normal, PERRL, EOMI Skin: Nl inspection, No rash, No skin lesions, No ecchymosis, Well hydrated, No lymphadenopathy ENMT: External ears, nose nl, Nasal exam nl, Lips, teeth, gums nl Neck: Nontender, Full ROM w/o pain, No JVD, No nuchal rigidity, No bruit, No mass, No stridor Respiratory: Nl effort/Exclusion, Clear to Auscultation, No Wheeze/Rhonchi/Rales Cardio Vascular: RRR, No murmur, gallop, rubs, NL S1 S2 GI: No tenderness/rebounding/guarding, No organomegaly, No hernia, Normal BS's, Nondistended, No mass/bruits, No McBurney tenderness : No CVA tenderness Extremities: No tenderness or effusion, Full ROM, normal strength in all extremities, No edema, Normal digits & nails Neuro/Psych: Alert/oriented, DTR's symmetric, Normal sensory exam, Normal motor strength, Judgement/insight normal, Mood normal, Normal gait, No focal deficits Other Neuro/Psych comments:: early alcoholic withdrawal Misc: Normal back, No paraspinal tenderness ED Labs/Radiology/EKG Results - Lab Results Results: alcohol intoxication ED Assessment - Assessment General Assessment: alcohol intoxication ED Septic Shock - . Is Septic Shock (SBP<90, OR Lactate>4 mmol\L) present?: No - <6hrs of presentation: Vital Signs: Vital Signs - 8 hr 01/19/19 00:05 Temp 97.2 F HR 85 RR 18 BP 108/71 O2 Sat % 99 ED Reassessment (Disposition) - Reassessment Reassessment Condition:: Improved - Diagnosis Diagnosis:: alcohol intoxication - Aftercare/Follow up Instructions Aftercare/Follow-Up Instructions:: Counseled pt regarding lab results/diagnosis & need follow up, Refer to Discharge Instructions, Counseled pt & family regarding lab results/diagnosis & need follow up - Patient Disposition Discharge/Transfer:: Home Condition at Disposition:: Improved
[2019-01-19 01:02] LABS: URINE SOURCE CLEAN C
[2019-01-19 01:32] LABS: % BASOPHILS 0.7 % (0.0-2.0); % EOSINOPHILS 0.3 % (0.0-5.0); % LYMPHOCYTES 14.7 % (20.0-50.0); % NEUTROPHILS 79.3 % (40.0-80.0); HEMATOCRIT 31.5 % (41.0-60); HEMOGLOBIN 10.6 gm/dL (12-16); LYMPHOCYTE ABSOLUTE 0.9 Th/cmm (1.5-3.0); MEAN CELL VOLUME 105.4 fl (81-100); MEAN CORPUSCULAR HEMOGLOBIN 35.6 pg (27.0-31.0); MEAN CORPUSCULAR HGB CONC 33.7 pg (28.0-36.0); MONOCYTE ABSOLUTE 0.3 Th/cmm (0.3-1.0); NEUTROPHILE ABSOLUTE 5.1 Th/cmm (1.8-8.0); PLATELET COUNT 257 Th/cmm (150-400); RED BLOOD COUNT 2.99 Mil/cmm (3.80-5.10); RED CELL DISTRIBUTION WIDTH 13.4 % (11.5-20.0); WHITE BLOOD COUNT 6.3 Th/cmm (4.8-10.8)
[2019-01-19 01:37] LABS: URINE BILIRUBIN NEGATIVE (NEGATIVE); URINE CLARITY HAZY (CLEAR); URINE COLOR OTHER; URINE GLUCOSE (UA) NEGATIVE (NEGATIVE); URINE KETONE NEGATIVE (NEGATIVE)
[2019-01-19 01:38] LABS: INR 1.09 (0.5-1.4)
[2019-01-19 01:38] LABS: URINE BLOOD NEGATIVE (NEGATIVE); URINE LEUKOCYTE ESTERASE NEGATIVE (NEGATIVE); URINE MICROSCOPIC INDICATED? NO; URINE NITRATE NEGATIVE (NEGATIVE); URINE PH 6.5 (4.6 - 8.0); URINE PROTEIN NEGATIVE (NEGATIVE); URINE UROBILINOGEN 0.2 E.U./dL (0.2 - 1.0)
[2019-01-19 01:42] LABS: ALB/GLOB RATIO 1.1 (1.0-1.8); ALKALINE PHOSPHATASE 122 U/L (34-104); AMYLASE SERUM 47 U/L (29-103); ANION GAP 13.3 (7.0-16.0); BILIRUBIN,TOTAL 0.6 mg/dL (0.3-1.0); BUN - UREA NITROGEN 15 mg/dL (7-25); CALCIUM SERUM 8.6 mg/dL (8.6-10.3); CARBON DIOXIDE 21.8 mEq/L (21.0-31.0); CHLORIDE 108 mEq/L (98-107); CREATININE - SERUM 0.7 mg/dL (0.6-1.2); GFR AFRICAN-AMERICAN > 60.0 ml/min (>90); GFR NON AFRICAN-AMERICAN > 60.0 ml/min; GLUCOSE 121 mg/dL (70-105); POTASSIUM SERUM 4.1 mEq/L (3.5-5.1); SGOT 98 U/L (13-39); SGPT/ALT 48 U/L (7-52); SODIUM SERUM 139 mEq/L (136-145); TOTAL PROTEIN,SERUM 5.7 gm/dL (6.0-8.3)
[2019-01-19 01:43] LABS: AMPHETAMINE URINE NEGATIVE (NEGATIVE); BARBITURATES URINE NEGATIVE (NEGATIVE); BENZODIAZEPINES QUAL URINE POSITIVE (NEGATIVE); CANNABINOID THC NEGATIVE (NEGATIVE); COCAINE METABOLITE QUAL URINE NEGATIVE (NEGATIVE); METHADONE URINE NEGATIVE (NEGATIVE); METHAMPHETAMINES QUAL URINE NEGATIVE (NEGATIVE); OPIATES (MORPHINE) QUAL. URINE NEGATIVE (NEGATIVE); PHENCYCLIDINE (PCP) URINE NEGATIVE (NEGATIVE); TRICYCLICS (TCA) QUAL. URINE NEGATIVE (NEGATIVE)
== END 2019-01-19 05:45 | disposition home or self-care (01) ==
LOC: ER 00:02
DX: F10.129 Alcohol abuse with intoxication, unspecified (principal); Y90.7 Blood alcohol level of 200-239 mg/100 ml
CPT/HCPCS: 36415-UA; 80053-TC; 80307; 80320-TC; 81003-TC; 81025-TC; 82140-TC; 82150-TC; 84443-TC; 84484-TC; 85025-TC; 85610-TC; 85730-TC; Z7502